=== PATIENT | female | born 1950 ===

== ENCOUNTER 2018-10-04 14:46 | Inpatient (IN) ==
--- NOTE | 2018-10-04 15:01 | Emergency Department Note ---
Disposition Clinical Impression: Chest pain Qualifiers: Chest pain type: other chest pain Qualified Code(s): R07.89 - Other chest pain Disposition: Admitted As Inpatient Condition: Fair Time of Disposition: 00:09 Chest Pain HPI - General Chief Complaint: ED Chest Pain Stated Complaint: Chest Pain Time Seen by Provider: 10/04/18 15:00 Source: patient, family Mode of arrival: ambulatory Limitations: no limitations Vital Signs Reviewed: Yes Nursing Notes Reviewed: Yes - History of Present Illness HPI Narrative: 68-year-old female without significant past medical history presenting to the ED for one week of intermittent mid epigastric pain radiating into her left neck, shoulder, and jaw. Patient states that her first episode was approximately one week ago when she was walking outside in the heat and suddenly developed 10 out of 10 severe epigastric pain. Patient states symptoms spontaneous really resolved and have occurred in a trending pattern nearly immediately after eating for the past week. Patient states the pain is especially worse after eating fatty foods. Patient states that she has a family history of cholecystitis and states that her mother and grandmother both had to have gallbladders removed. Patient is currently on atorvastatin for cholesterol but denies any other medications or known drug allergies. In addition to symptoms mentioned above patient admits to diaphoresis and shortness of breath with these episodes, patient also admits to being overly fatigued within the past week. Pt complaint: chest pain Onset (ago): week(s) Duration: intermittent Onset: during exertion, after eating Pain Location: epigastric Severity: severe, now resolved Severity scale (1-10): 10 Pain Radiation: LUE, jaw/teeth Improves with: rest Worsens with: eating Associated symptoms: Reports: nausea, diaphoresis, dyspnea - Related Data On Oral Contraceptives: No Home Medications Medication Instructions Recorded Confirmed Atorvastatin 03/14/17 Previous Rx's Medication Instructions Recorded Amoxicillin 875 mg PO BID #20 tablet 03/14/17 Benzonatate [Tessalon] 200 mg PO TID PRN #20 capsule 03/14/17 Fluticasone Propionate Nasal 1 spray NS DAILY #1 bottle 03/14/17 [Flonase] Allergies Allergy/AdvReac Type Severity Reaction Status Date / Time No Known Allergies Allergy Verified 03/14/17 12:43 Review of Systems: *See History of Present Illness for more detail Constitutional: Denies: fever, chills Cardiovascular: Admits: chest pain Respiratory: Denies: dyspnea, denies: cough, hemoptysis Gastrointestinal: Admits to nausea Denies: abdominal pain, vomiting, diarrhea, constipation, hematemesis, melena, hematochezia Genitourinary: Denies: hematuria Musculoskeletal: Denies: back pain, neck pain Neurological: Denies: headache, weakness, lightheadedness/dizziness, numbness, paresthesias, difficulty with ambulation. Endocrine: Admits: fatigue All systems ED: reviewed and negative except as stated. Review of Systems: As Per HPI Chest Pain PMH - Past Medical History Medical history: Reports: non-contributory Psychiatric history: Reports: no psych history - Social History Smoking Status: Never smoker Alcohol use: Reports: none Drug use: Reports: none Physical Exam Constitutional: No acute distress, [id number], engaged to conversation, speech is fluid, answers questions appropriately Neuro: GCS 15, no overt focal neurological deficits Head: Atraumatic, normocephalic Eyes: Pupils equal, round and reactive to light, no scleral icterus, no conjunctival injection Neck: Trachea midline without deviation. Anterior neck is supple without swelling. *Chest: Symmetric chest wall rise *Heart: Cardiac rhythm and rate are regular with S1 and S2 , no S3 or S4 appreciated, no murmurs, gallops, rubs, or clicks. *Lungs: Lungs are clear to auscultation bilaterally, without accessory muscle use or prolonged expiratory phase. No wheezes, rhonchi or stridor appreciated. Abdomen: Abdomen is flat, soft to palpation, normal bowel sounds. No abdominal bruit auscultated. Non-distended, non-rigid, no organomegaly, no ascites appreciated. No pulsatile mass, no tenderness or guarding to palpation in all four quadrants, no rebound Extremities: Normal capillary refill without evidence of pedal edema, joint swelling or erythema. Pulses/motor intact in all 4 extremities. Psychiatric exam: Patient displays a normal affect and mood for the environment. No overt signs of hallucination. Integumentary: warm, dry, intact, normal color. No rash, cyanosis, diaphoresis, erythema, or pallor - General Limitations: no limitations General appearance: alert, in no apparent distress Course Course Narrative: Differential diagnosis includes but is not limited to: Myocardial ischemia Pneumonia Cholecystitis, cholangitis Hepatic pathology Pancreatic pathology Ulceration Evaluations: CBC, BMP, hepatic panel, lipase, urine ED ultrasound upper right quadrant, EKG/old EKG, chest x-ray, troponin, coags Treatment: Patient denies symptoms at this time denies the need for pain medicine or antinausea medicine. Patient has been a bedside told to inform me if this changes. Vital Signs Temperature 97.5 F L 10/04/18 14:57 Pulse Rate 86 10/04/18 14:57 Respiratory Rate 18 10/04/18 14:57 Blood Pressure 189/95 10/04/18 14:57 O2 Sat by Pulse Oximetry 98 10/04/18 14:57 Temperature 97.8 F 10/04/18 23:32 Pulse Rate 62 10/04/18 23:32 Respiratory Rate 16 10/04/18 23:32 Blood Pressure 138/73 10/04/18 23:32 O2 Sat by Pulse Oximetry 98 10/04/18 23:32 Oxygen Delivery Oxygen Delivery Room Air Chest Pain - MDM Narrative Medical decision making narrative: Patient labs, EKG, and urine results negative for acute pathology. Patient heart score is 5 Patient be admitted to hospitalist medicine service for their evaluation and management of chest pain for rule out of ACS. Patient and family family at bedside verbalize understanding and agreement this plan. - Lab Data Lab results reviewed: Yes I reviewed the patient's lab results. Result diagrams: 10/04/18 18:30 10/04/18 15:21 Lab Results 10/04/18 10/04/18 10/04/18 Range/Units 15:21 15:21 15:21 WBC 8.1 (4.3-11.1) K/mcL RBC 4.46 (3.82-4.97) M/mcL Hgb 13.0 (11.5-15.4) g/dL Hct 39.7 (35.3-44.9) % MCV 89.0 (83.0-100.0) fL MCH 29.1 (28.0-33.3) pg MCHC 32.7 (31.6-35.5) g/dL RDW 12.6 (11.5-14.5) % Plt Count 264 (140-400) K/mcL MPV 9.7 (9.4-12.4) fL Immature Gran % 0.2 (0-4) % Seg Neutrophils % 60.0 % Lymphocytes % 32.2 % Monocytes % 5.6 % Eosinophils % 1.6 % Basophils % 0.4 % Neutrophils # 4.9 (1.6-8.9) K/mcL Lymphocytes # 2.6 (0.6-4.6) K/mcL Monocytes # 0.5 (0.0-1.3) K/mcL Eosinophils # 0.1 (0.0-0.6) K/mcL Basophils # 0.0 (0.0-0.2) K/mcL PT 11.9 (9.4-12.1) Seconds INR 1.1 APTT 30.1 (26.0-36.0) Seconds Sodium 142 (136-145) mEq/L Potassium 3.5 (3.5-5.1) mEq/L Chloride 106 (98-107) mEq/L Carbon Dioxide 27 (23-29) mEq/L BUN 18 (8-23) mg/dL Creatinine 1.18 (0.60-1.20) mg/dL Est GFR ( Amer) 55 L (> 60) Est GFR (Non-Af Amer) 46 L (> 60) BUN/Creatinine Ratio 15 (6-26) Glucose 165 H (70-105) mg/dL Calculated Osmolality 300 (280-300) Calcium 9.8 (8.6-10.3) mg/dL Total Bilirubin (0.3-1.0) mg/dL Direct Bilirubin (0.0-0.2) mg/dL Indirect Bilirubin (0.0-1.2) mg/dL AST (13-39) Units/L ALT (7-52) Units/L Alkaline Phosphatase (34-104) Units/L Troponin I < 0.03 (< 0.04) ng/mL Serum Total Protein (6.4-8.9) g/dL Albumin (3.5-5.7) g/dL Globulin (2.4-3.5) g/dL Albumin/Globulin Ratio (1.1-2.2) 10/04/18 Range/Units 15:21 WBC (4.3-11.1) K/mcL RBC (3.82-4.97) M/mcL Hgb (11.5-15.4) g/dL Hct (35.3-44.9) % MCV (83.0-100.0) fL MCH (28.0-33.3) pg MCHC (31.6-35.5) g/dL RDW (11.5-14.5) % Plt Count (140-400) K/mcL MPV (9.4-12.4) fL Immature Gran % (0-4) % Seg Neutrophils % % Lymphocytes % % Monocytes % % Eosinophils % % Basophils % % Neutrophils # (1.6-8.9) K/mcL Lymphocytes # (0.6-4.6) K/mcL Monocytes # (0.0-1.3) K/mcL Eosinophils # (0.0-0.6) K/mcL Basophils # (0.0-0.2) K/mcL PT (9.4-12.1) Seconds INR APTT (26.0-36.0) Seconds Sodium (136-145) mEq/L Potassium (3.5-5.1) mEq/L Chloride (98-107) mEq/L Carbon Dioxide (23-29) mEq/L BUN (8-23) mg/dL Creatinine (0.60-1.20) mg/dL Est GFR ( Amer) (> 60) Est GFR (Non-Af Amer) (> 60) BUN/Creatinine Ratio (6-26) Glucose (70-105) mg/dL Calculated Osmolality (280-300) Calcium (8.6-10.3) mg/dL Total Bilirubin 0.7 (0.3-1.0) mg/dL Direct Bilirubin 0.1 (0.0-0.2) mg/dL Indirect Bilirubin 0.6 (0.0-1.2) mg/dL AST 16 (13-39) Units/L ALT 12 (7-52) Units/L Alkaline Phosphatase 75 (34-104) Units/L Troponin I (< 0.04) ng/mL Serum Total Protein 7.2 (6.4-8.9) g/dL Albumin 4.5 (3.5-5.7) g/dL Globulin 2.7 (2.4-3.5) g/dL Albumin/Globulin Ratio 1.7 (1.1-2.2) - Radiology Data Radiology results reviewed: Yes I reviewed the patient's radiology results. Chest X-Ray 10/04/18 14:59 IMPRESSION: No acute cardiopulmonary disease. D/ / Ricardo Brown / Ricardo Brown Interpreting Provider: Ricardo Brown - EKG Data EKG attestation: Yes I reviewed and interpreted this EKG. EKG results narrative: Patient's EKG shows a sinus rhythm with borderline left axis deviation a ventricular rate of 76 bpm, TX interval of 155 ms, QS duration of 90 ms, QT/QTc interval 403/434 ms respectively. There are minor ST segment depressions noted in the anterior lateral leads, there are no significant ST segment depressions noted, there are no pathologic Q waves, there are abnormal T-wave inversions noted in lead 3 with flattening of T waves in aVF, which may represent a normal variant but in the setting of the patient's story and anterior lateral changes concerning for ischemia. At this time there is no prior EKG available for comparison. Heart Score - Score History: Moderately Suspicious EKG: Non Specific repolarisation Disturbance Age: Greater than 65 Risk Factors: 1-2 risk factors Troponin: Less than normal limit HEART Score Total: 5
--- NOTE | 2018-10-04 15:45 | Emergency Department Note ---
Disposition Clinical Impression: Chest pain Qualifiers: Chest pain type: unspecified Qualified Code(s): R07.9 - Chest pain, unspecified Disposition: Admitted As Inpatient Condition: Fair Forms: ED Satisfaction Letter Time of Disposition: 17:12 General Adult HPI - General Chief complaint: ED Chest Pain Stated complaint: Chest Pain Time Seen by Provider: 10/04/18 15:00 Source: patient, family Mode of arrival: ambulatory Limitations: no limitations - History of Present Illness Pain Scale: 10 - Related Data Home Medications Medication Instructions Recorded Confirmed Atorvastatin 03/14/17 Previous Rx's Medication Instructions Recorded Amoxicillin 875 mg PO BID #20 tablet 03/14/17 Benzonatate [Tessalon] 200 mg PO TID PRN #20 capsule 03/14/17 Fluticasone Propionate Nasal 1 spray NS DAILY #1 bottle 03/14/17 [Flonase] Allergies Allergy/AdvReac Type Severity Reaction Status Date / Time No Known Allergies Allergy Verified 03/14/17 12:43 Past Medical History - Past Medical History Medical history: Reports: non-contributory Psychiatric history: Reports: no psych history - Social History Smoking Status: Never smoker Smokeless Tobacco Status: No Alcohol use: Reports: none Drug use: Reports: none Physical Exam - General Limitations: no limitations General appearance: alert, in no apparent distress Course Vital Signs Temperature 97.5 F L 10/04/18 14:57 Pulse Rate 86 10/04/18 14:57 Respiratory Rate 18 10/04/18 14:57 Blood Pressure 189/95 10/04/18 14:57 O2 Sat by Pulse Oximetry 98 10/04/18 14:57 Temperature 97.5 F L 10/04/18 14:57 Pulse Rate 86 10/04/18 14:57 Respiratory Rate 18 10/04/18 14:57 Blood Pressure 189/95 10/04/18 14:57 O2 Sat by Pulse Oximetry 98 10/04/18 14:57 Oxygen Delivery Oxygen Delivery Room Air Medical Decision Making - Lab Data Result diagrams: 10/04/18 15:21 10/04/18 15:21 Lab Results 10/04/18 10/04/18 10/04/18 Range/Units 15:21 15:21 15:21 WBC 8.1 (4.3-11.1) K/mcL RBC 4.46 (3.82-4.97) M/mcL Hgb 13.0 (11.5-15.4) g/dL Hct 39.7 (35.3-44.9) % MCV 89.0 (83.0-100.0) fL MCH 29.1 (28.0-33.3) pg MCHC 32.7 (31.6-35.5) g/dL RDW 12.6 (11.5-14.5) % Plt Count 264 (140-400) K/mcL MPV 9.7 (9.4-12.4) fL Immature Gran % 0.2 (0-4) % Seg Neutrophils % 60.0 % Lymphocytes % 32.2 % Monocytes % 5.6 % Eosinophils % 1.6 % Basophils % 0.4 % Neutrophils # 4.9 (1.6-8.9) K/mcL Lymphocytes # 2.6 (0.6-4.6) K/mcL Monocytes # 0.5 (0.0-1.3) K/mcL Eosinophils # 0.1 (0.0-0.6) K/mcL Basophils # 0.0 (0.0-0.2) K/mcL PT 11.9 (9.4-12.1) Seconds INR 1.1 APTT 30.1 (26.0-36.0) Seconds Sodium 142 (136-145) mEq/L Potassium 3.5 (3.5-5.1) mEq/L Chloride 106 (98-107) mEq/L Carbon Dioxide 27 (23-29) mEq/L BUN 18 (8-23) mg/dL Creatinine 1.18 (0.60-1.20) mg/dL Est GFR ( Amer) 55 L (> 60) Est GFR (Non-Af Amer) 46 L (> 60) BUN/Creatinine Ratio 15 (6-26) Glucose 165 H (70-105) mg/dL Calculated Osmolality 300 (280-300) Calcium 9.8 (8.6-10.3) mg/dL Total Bilirubin (0.3-1.0) mg/dL Direct Bilirubin (0.0-0.2) mg/dL Indirect Bilirubin (0.0-1.2) mg/dL AST (13-39) Units/L ALT (7-52) Units/L Alkaline Phosphatase (34-104) Units/L Troponin I < 0.03 (< 0.04) ng/mL Serum Total Protein (6.4-8.9) g/dL Albumin (3.5-5.7) g/dL Globulin (2.4-3.5) g/dL Albumin/Globulin Ratio (1.1-2.2) 10/04/18 Range/Units 15:21 WBC (4.3-11.1) K/mcL RBC (3.82-4.97) M/mcL Hgb (11.5-15.4) g/dL Hct (35.3-44.9) % MCV (83.0-100.0) fL MCH (28.0-33.3) pg MCHC (31.6-35.5) g/dL RDW (11.5-14.5) % Plt Count (140-400) K/mcL MPV (9.4-12.4) fL Immature Gran % (0-4) % Seg Neutrophils % % Lymphocytes % % Monocytes % % Eosinophils % % Basophils % % Neutrophils # (1.6-8.9) K/mcL Lymphocytes # (0.6-4.6) K/mcL Monocytes # (0.0-1.3) K/mcL Eosinophils # (0.0-0.6) K/mcL Basophils # (0.0-0.2) K/mcL PT (9.4-12.1) Seconds INR APTT (26.0-36.0) Seconds Sodium (136-145) mEq/L Potassium (3.5-5.1) mEq/L Chloride (98-107) mEq/L Carbon Dioxide (23-29) mEq/L BUN (8-23) mg/dL Creatinine (0.60-1.20) mg/dL Est GFR ( Amer) (> 60) Est GFR (Non-Af Amer) (> 60) BUN/Creatinine Ratio (6-26) Glucose (70-105) mg/dL Calculated Osmolality (280-300) Calcium (8.6-10.3) mg/dL Total Bilirubin 0.7 (0.3-1.0) mg/dL Direct Bilirubin 0.1 (0.0-0.2) mg/dL Indirect Bilirubin 0.6 (0.0-1.2) mg/dL AST 16 (13-39) Units/L ALT 12 (7-52) Units/L Alkaline Phosphatase 75 (34-104) Units/L Troponin I (< 0.04) ng/mL Serum Total Protein 7.2 (6.4-8.9) g/dL Albumin 4.5 (3.5-5.7) g/dL Globulin 2.7 (2.4-3.5) g/dL Albumin/Globulin Ratio 1.7 (1.1-2.2) Attestation Statement - Attestation Attestation: I examined this patient and my medical decision-making was reviewed with the Resident Physician. I agree with the documented findings, disposition and treatment plan as described except to the extent set forth below. Patient presents to the ED with acute chest pain. Substernal pressure remained in the left upper chest and arm and neck. Started this morning after she ate breakfast. No cardiac history. She does have a family history and a history of high cholesterol. Patient is currently pain-free. On exam she is awake and alert in no acute distress. Pleasant and conversant. Heart regular rate and rhythm lungs are clear. No pedal edema. Plan. Cardiac workup. Troponin is negative. Patient is admitted secondary to history, risk factors, an EKG changes. EKG with the resident. Anterolateral ST depressions in the inferior T wave inversions and flattening concerning for ischemia.:
[2018-10-04 15:47] LABS: Basophils % 0.4 %; Eosinophils # 0.1 K/mcL (0.0-0.6); Eosinophils % 1.6 %; Hematocrit 39.7 % (35.3-44.9); Immature Granulocytes % 0.2 % (0-4); Lymphocytes # 2.6 K/mcL (0.6-4.6); Lymphocytes % 32.2 %; Mean Corpuscular HGB Conc 32.7 g/dL (31.6-35.5); Mean Corpuscular Hemoglobin 29.1 pg (28.0-33.3); Mean Platelet Volume 9.7 fL (9.4-12.4); Monocytes # 0.5 K/mcL (0.0-1.3); Monocytes % 5.6 %; Neutrophils # 4.9 K/mcL (1.6-8.9); Platelet Count 264 K/mcL (140-400); Red Blood Count 4.46 M/mcL (3.82-4.97); Red Cell Distribution Width 12.6 % (11.5-14.5); White Blood Count 8.1 K/mcL (4.3-11.1)
[2018-10-04 15:55] LABS: INR 1.1; Prothrombin Time 11.9 Seconds (9.4-12.1)
[2018-10-04 15:57] LABS: Activated Partial Thrombo Time 30.1 Seconds (26.0-36.0)
[2018-10-04 16:03] LABS: Albumin 4.5 g/dL (3.5-5.7); Albumin/Globulin Ratio 1.7 (1.1-2.2); Bilirubin,Direct 0.1 mg/dL (0.0-0.2); Bilirubin,Indirect 0.6 mg/dL (0.0-1.2); Bilirubin,Total 0.7 mg/dL (0.3-1.0); Globulin 2.7 g/dL (2.4-3.5); Total Protein 7.2 g/dL (6.4-8.9)
[2018-10-04 16:05] LABS: BUN/Creatinine Ratio 15 (6-26); Blood Urea Nitrogen 18 mg/dL (8-23); Calcium 9.8 mg/dL (8.6-10.3); Carbon Dioxide 27 mEq/L (23-29); Chloride 106 mEq/L (98-107); Glucose 165 mg/dL (70-105); Osmolality,Calculated 300 (280-300); Potassium 3.5 mEq/L (3.5-5.1); Sodium 142 mEq/L (136-145); Troponin I < 0.03 ng/mL (< 0.04); eGFR For African Americans 55 (> 60); eGFR For Non-African Americans 46 (> 60)
[2018-10-04] MEDS ORDERED: Acetaminophen 325 MG TABLET PO PRN (17:55)
[2018-10-04] MEDS ORDERED: Naloxone 0.4 MG/ML INJ IVP PRN (17:55)
--- NOTE | 2018-10-04 18:09 | Internal Med History&Physical ---
Date of Encounter: 10/04/18 Time of Encounter: 17:30 Internal Medicine - H&P: HPI Chief complaint: Chest pain Admitted From: Emergency Dept Plans for Post Hospital Care: Home History of present illness: Ms. Reyes is a 68 year old female with hx of ovarian cancer and HLD presented to ED with complaints of L side chest pain. She was placed in observation. Ms Reyes presented to ED with complaints of L side chest pain radiating to her neck. She stated these symptoms have been going on for a few weeks but seem to be getting more frequent. At times she has had associated diaphoresis and dyspnea. She has been much more fatigued over the last few weeks and daughter ([facility] nurse practitioner) noted that when patient went up stairs recently she was very dyspneic and diaphoretic and resolved with rest. She had chest discomfort at that time. Today she had 3 separate episodes and that prompted coming to ED. Sometimes the discomfort is associated with food (ED bedside US did not show stones). She has no hx of HTN but her BP is elevated at this time. No prior hx of heart disease (but did not see doctor for many years). Quit smoking in about 1979. No alcohol or illicit drugs. At this time she is comfortable and has no symptoms. Family is at bedside. ED note states that there are changes that could be ischemic but [facility] and I can not find it in the ED to review. Past Med Surg Social Fam HX - Past Medical History Medical history: non-contributory Psychiatric history: no psych history - Past Surgical History Additional surgical history: fistula repair - colonoscopy - Social History Smoking Status: Never smoker Smokeless Tobacco Status: No Alcohol use: none Drug use: none - Family History Brother Hx Family Cardiac Disorders: Yes (CAD) - Additional Family History Additional family history: Multiple family members with CAD/TX, cancer, CVA. No DM or HTN noted. Internal Medicine - H&P: Meds Amoxicillin 875 mg PO BID #20 tablet 03/14/17 [Rx] Atorvastatin 03/14/17 [History] Benzonatate [Tessalon] 200 mg PO TID PRN #20 capsule 03/14/17 [Rx] Fluticasone Propionate Nasal [Flonase] 1 spray NS DAILY #1 bottle 03/14/17 [Rx] Allergy/AdvReac Type Severity Reaction Status Date / Time No Known Allergies Allergy Verified 03/14/17 12:43 All Systems PM: A 10-system review of systems was performed and is negative for pertinent findings except as documented above in the HPI. - Constitutional Constitutional: fatigue - EENT Eyes: no loss of vision, no pain Ears: no decreased hearing Nose, mouth and throat: no dry mouth, no mouth pain - Cardiovascular Cardiovascular ROS IM: chest pain, diaphoresis, dyspnea, dyspnea on exertion, no edema, no orthopnea, no palpitations, no paroxysmal nocturnal dyspnea - Respiratory Respiratory: dyspnea, dyspnea on exertion, no cough, no wheezing, no chest congestion - Gastrointestinal Gastrointestinal: abdominal pain, no diarrhea, no nausea, no vomiting - Genitourinary Genitourinary: no nocturia, no urinary frequency - Musculoskeletal Musculoskeletal ROS IM: no arthralgias, no joint swelling - Integumentary Integumentary IM: no erythema - Neurological Neurological ROS: no confusion, no weakness - Endocrine Endocrine IM: no excessive sweating - Hematologic/Lymphatic Hematologic/Lymphatic: no easy bleeding - Allergic/Immunologic Allergic/Immunologic: no itchy eyes - Constitutional Vitals: Temp Pulse Resp BP Pulse Ox 97.5 F L 86 18 189/95 98 10/04/18 14:57 10/04/18 14:57 10/04/18 14:57 10/04/18 14:57 10/04/18 14:57 General appearance: Present: A&O X 3, pleasant, answers questions appropriately Exam: See below - Head Head exam: Present: atraumatic, normocephalic - Eye Eye exam: Present: EOMI, conjuntiva pink - ENT ENT exam: Present: mucous membranes moist - Neck Neck exam general surgery: Present: normal inspection, supple. Absent: lymphadenopathy - Respiratory Respiratory exam: Present: CTAB. Absent: rales, rhonchi, wheezes - Cardiovascular Cardiovascular exam: Present: RRR. Absent: +S3, +S4, systolic murmur, tachycardia - GI/Abdominal GI/Abdominal exam: Present: normal bowel sounds, soft, tenderness (Mild in midepigastric/RUQ area). Absent: mass - Extremities Exam Extremities exam: Present: warm. Absent: pedal edema, tenderness - Neurological Exam Neurological exam: Present: alert, oriented X3, no focal deficits - Skin Skin exam: Present: dry, warm. Absent: rash Internal Med - H&P Results - Labs CBC & Chem 7: 10/04/18 15:21 10/04/18 15:21 Labs: Short CBC 10/04/18 Range/Units 15:21 WBC 8.1 (4.3-11.1) K/mcL Hgb 13.0 (11.5-15.4) g/dL Hct 39.7 (35.3-44.9) % Plt Count 264 (140-400) K/mcL Neutrophils # 4.9 (1.6-8.9) K/mcL BMP 10/04/18 15:21 Sodium 142 Potassium 3.5 Chloride 106 Carbon Dioxide 27 BUN 18 Creatinine 1.18 Glucose 165 H Calcium 9.8 Cardiac Enzymes 10/04/18 Range/Units 15:21 Troponin I < 0.03 (< 0.04) ng/mL Liver Function 10/04/18 Range/Units 15:21 Total Bilirubin 0.7 (0.3-1.0) mg/dL Direct Bilirubin 0.1 (0.0-0.2) mg/dL AST 16 (13-39) Units/L ALT 12 (7-52) Units/L Alkaline Phosphatase 75 (34-104) Units/L Albumin 4.5 (3.5-5.7) g/dL - Impressions ITS Impressions Chest X-Ray 10/04/18 14:59 IMPRESSION: No acute cardiopulmonary disease. D/ / Ricardo Brown / Ricardo Brown Interpreting Provider: Ricardo Brown - Assessment and Plan (1) Chest pain Current Visit: Yes Status: Suspected Assessment and plan: Pt presents to ED today with complaints of L side chest pain radiating to L neck. Episodes have been associated with diaphoresis, dyspnea and fatigue. Appear to be increasing in number and intensity. Suspect unstable angina - Cycle troponin. Check echo Stress test in AM As the episodes seem to be increasing (and there are reported EKG changes per ED), will start heparin drip overnight. Qualifiers: Chest pain type: chest pain due to myocardial ischemia Qualified Code(s): I20.0 - Unstable angina (2) HTN (hypertension) Current Visit: Yes Status: Suspected Assessment and plan: Pt denies prior hx of HTN but BP has been elevated in ED. Will start low dose Metoprolol tonight. Qualifiers: Hypertension type: essential hypertension Qualified Code(s): I10 - Essential (primary) hypertension (3) HLD (hyperlipidemia) Current Visit: Yes Status: Chronic Assessment and plan: Pt reports hx of HLD. Continue Atorvastatin (watching LFTs) Qualifiers: Hyperlipidemia type: mixed hyperlipidemia Qualified Code(s): E78.2 - Mixed hyperlipidemia (4) Abdominal pain Current Visit: Yes Status: Acute Assessment and plan: Pt reports episodes of epigastric discomfort as well. Mild increase in LFTs. ED US reportedly negative for stones (according to family). May need further work up after cardiac work up. Qualifiers: Abdominal location: epigastric Qualified Code(s): R10.13 - Epigastric pain (5) Hx of ovarian cancer Current Visit: Yes Status: Resolved Assessment and plan: Surgical cure - Time Spent With Patient Total time spent is greater than 50% in coordination of care (as documented) at patient's floor/unit and/or counseling patient:
[2018-10-04] MEDS ORDERED: *HR* Heparin 5,000 UNIT/ML VIAL IVP ONE (18:20)
[2018-10-04] MEDS ORDERED: *HR* Heparin 5,000 UNIT/ML VIAL IVP PRN (18:20)
[2018-10-04 18:46] LABS: Hematocrit 40.6 % (35.3-44.9); Hemoglobin 13.3 g/dL (11.5-15.4); Mean Corpuscular HGB Conc 32.8 g/dL (31.6-35.5); Mean Corpuscular Hemoglobin 29.1 pg (28.0-33.3); Mean Corpuscular Volume 88.8 fL (83.0-100.0); Mean Platelet Volume 9.3 fL (9.4-12.4); Platelet Count 278 K/mcL (140-400); Red Blood Count 4.57 M/mcL (3.82-4.97); Red Cell Distribution Width 12.6 % (11.5-14.5)
[2018-10-04] MEDS: Heparin 25,000 UNIT/250 ML D5W 25,000 UNIT/250 ML IV.SOLN IVC SCH (20:04)
[2018-10-04] MEDS ORDERED: Perflutren Lipid Microsphere 1.3 ML in 0.9 % Sodium Chloride 8.7 ML IVP ONE (20:58)
[2018-10-05 00:52] LABS: Hematocrit 37.3 % (35.3-44.9); Hemoglobin 12.4 g/dL (11.5-15.4); Mean Corpuscular HGB Conc 33.2 g/dL (31.6-35.5); Mean Corpuscular Hemoglobin 29.5 pg (28.0-33.3); Mean Corpuscular Volume 88.8 fL (83.0-100.0); Mean Platelet Volume 9.6 fL (9.4-12.4); Platelet Count 244 K/mcL (140-400); Red Cell Distribution Width 12.6 % (11.5-14.5); White Blood Count 10.7 K/mcL (4.3-11.1)
[2018-10-05 01:07] LABS: INR 1.2; Prothrombin Time 13.2 Seconds (9.4-12.1)
[2018-10-05 01:24] LABS: Alanine Aminotransferase 11 Units/L (7-52); Albumin 4.1 g/dL (3.5-5.7); Albumin/Globulin Ratio 1.8 (1.1-2.2); Alkaline Phosphatase 64 Units/L (34-104); Aspartate Amino Transferase 14 Units/L (13-39); BUN/Creatinine Ratio 16 (6-26); Bilirubin,Total 0.7 mg/dL (0.3-1.0); Blood Urea Nitrogen 14 mg/dL (8-23); Calcium 9.2 mg/dL (8.6-10.3); Carbon Dioxide 25 mEq/L (23-29); Chloride 106 mEq/L (98-107); Chol/HDL Ratio 2.7 (0-4.9); Cholesterol 142 mg/dL (< 200); Globulin 2.3 g/dL (2.4-3.5); Glucose 128 mg/dL (70-105); HDL Cholesterol 53 mg/dL (40-59); LDL Cholesterol,Calculated 76 mg/dL (0-99); Magnesium 2.2 mg/dL (1.6-2.6); Osmolality,Calculated 292 (280-300); Potassium 3.3 mEq/L (3.5-5.1); Sodium 140 mEq/L (136-145); Total Protein 6.4 g/dL (6.4-8.9); Triglycerides 66 mg/dL (< 150); Troponin I 0.04 ng/mL (< 0.04); eGFR For African Americans > 60 (> 60); eGFR For Non-African Americans > 60 (> 60)
[2018-10-05] MEDS ORDERED: Regadenoson 0.4 MG/5 ML SYRINGE IVP ONE (06:08)
[2018-10-05 10:09] LABS: Estimated Average Glucose 126 mg/dl
--- NOTE | 2018-10-05 11:08 | Internal Med Progress Note ---
Hospitalist Progress Note - Encounter Date of Encounter: 10/05/18 Time of Encounter: 10:45 - Subjective Interval History: Ms Reyes is currently in observation for unstable angina. She remains moderate to high risk due to potential for worsening cardiac status. Ms Reyes is feeling OK at this time. No further chest pain. Troponin with slight increase. Stress test cancelled. To have cardiac evaluation and most likely LHC. - Exam Vitals: Temp Pulse Resp BP Pulse Ox 98.2 F 74 16 142/78 96 10/05/18 07:01 10/05/18 07:01 10/05/18 07:01 10/05/18 07:01 10/05/18 07:01 Exam: General: Alert and oriented. Comfortable at this time. Sititng up in chair. Skin: Normal color, no rash, H: Normocephalic. EENT: EOMI, Mucus membranes moist. Cardiovascular: Normal S1 & S2, Pulse regular. Lungs: Normal breath sounds, no wheezes or crackles. Abdomen: Soft, non-tender, Normal bowel sounds. Extremities: No deformity, no edema Neurological: Normal cognition and motor skills. Pulses: radial pulses normal +2. Rest of the physical exam is non contributory - Assessment and Plan (1) Chest pain Current Visit: Yes Status: Suspected Assessment and Plan: Pt presents to ED with complaints of L side chest pain radiating to L neck. Episodes have been associated with diaphoresis, dyspnea and fatigue. Appear to be increasing in number and intensity. Suspect unstable angina - Slight increase in troponin. Stress test held - to have LHC. (2) HTN (hypertension) Current Visit: Yes Status: Suspected Assessment and Plan: Pt denies prior hx of HTN but BP was elevated in ED. Metoprolol started - some improvement noted. (3) HLD (hyperlipidemia) Current Visit: Yes Status: Chronic Assessment and Plan: Pt reports hx of HLD. Continue Atorvastatin (4) Abdominal pain Current Visit: Yes Status: Resolved (5) Hx of ovarian cancer Current Visit: Yes Status: Resolved (6) Hypokalemia Current Visit: Yes Status: Acute Assessment and Plan: New today. Replace. - Time Spent with Patient Total time spent is greater than 50% in coordination of care (as documented) at patient's floor/unit and/or counseling patient: Internal Medicine: Result - Labs CBC & Chem 7: 10/05/18 00:15 06/08/19 00:15 Labs: Short CBC 10/04/18 10/04/18 10/05/18 Range/Units 15:21 18:30 00:15 WBC 8.1 9.0 10.7 (4.3-11.1) K/mcL Hgb 13.0 13.3 12.4 (11.5-15.4) g/dL Hct 39.7 40.6 37.3 (35.3-44.9) % Plt Count 264 278 244 (140-400) K/mcL Neutrophils # 4.9 (1.6-8.9) K/mcL BMP 10/04/18 10/05/18 15:21 00:15 Sodium 142 140 Potassium 3.5 3.3 L Chloride 106 106 Carbon Dioxide 27 25 BUN 18 14 Creatinine 1.18 0.89 Glucose 165 H 128 H Calcium 9.8 9.2 Cardiac Enzymes 10/04/18 10/04/18 10/05/18 Range/Units 15:21 18:30 00:15 Troponin I < 0.03 0.04 H* 0.04 H* (< 0.04) ng/mL 10/05/18 Range/Units 07:15 Troponin I 0.03 (< 0.04) ng/mL Liver Function 10/04/18 10/05/18 Range/Units 15:21 00:15 Total Bilirubin 0.7 0.7 (0.3-1.0) mg/dL Direct Bilirubin 0.1 (0.0-0.2) mg/dL AST 16 14 (13-39) Units/L ALT 12 11 (7-52) Units/L Alkaline Phosphatase 75 64 (34-104) Units/L Albumin 4.5 4.1 (3.5-5.7) g/dL - ABG Interpretation ABG results: PT/INR, D-dimer PT 13.2 Seconds (9.4-12.1) H 10/05/18 00:15 - Impressions Impressions Chest X-Ray 10/04/18 14:59 IMPRESSION: No acute cardiopulmonary disease. D/ / Ricardo Brown / Ricardo Brown Interpreting Provider: Ricardo Brown Echocardiogram 10/04/18 17:56 Impressions: LVEF 60-65%. Normal LV chamber size and wall thickness. Mild left ventricular diastolic dysfunction. Normal right ventricular structure and function. Mild aortic regurgitation. No evidence of pulmonary hypertension. Left Ventricular Wall Motion: Rest Echo Findings All wall segments showed normal motion. Findings: Study Quality * Technically adequate exam. ECG Findings * Normal sinus rhythm. Left Ventricle * LVEF 60-65%. * Normal LV chamber size and wall thickness. * Mild left ventricular diastolic dysfunction. Right Ventricle * Normal right ventricular structure and function. Left Atrium * Normal left atrial size. Right Atrium * Normal right atrial size. Interatrial Septum * No evidence of PFO by color Doppler. Aortic Valve * Trileaflet aortic valve. * Mild aortic regurgitation. * No aortic stenosis. * Mildly sclerotic aortic valve leaflets. Mitral Valve * Normal mitral valve structure. * No mitral regurgitation. * No mitral stenosis. Tricuspid Valve * Normal tricuspid valve structure. * No tricuspid stenosis. * No evidence of pulmonary hypertension. * Mild tricuspid regurgitation. Pulmonic Valve * Trace pulmonic regurgitation. Aorta * Normally sized aortic root. Pericardium * The pericardium appears normal. IVC * Normal IVC dimensions and inspiratory collapse. Pulmonary Artery * Normal visualized portions of the main pulmonary artery. Consult Discharge Plan - Plan Referrals: Zandra Klein, YARN PACKER [Primary Care Provider] - (1) Chest pain Qualifiers: Chest pain type: chest pain due to myocardial ischemia Qualified Code(s): I20.0 - Unstable angina (2) HTN (hypertension) Qualifiers: Hypertension type: essential hypertension Qualified Code(s): I10 - Essential (primary) hypertension (3) HLD (hyperlipidemia) Qualifiers: Hyperlipidemia type: mixed hyperlipidemia Qualified Code(s): E78.2 - Mixed hyperlipidemia (4) Abdominal pain Qualifiers: Abdominal location: epigastric Qualified Code(s): R10.13 - Epigastric pain
[2018-10-05] MEDS: Aspirin 81 MG TAB.CHEW PO SCH (12:31)
--- NOTE | 2018-10-05 14:32 | Cardiology Consult Note ---
Date of Encounter: 10/05/18 Time of Encounter: 09:00 Assessment and Plan (1) Unstable angina Current Visit: Yes Status: Acute Patient's clinical presentation consistent with unstable angina/NSTEMI minimal troponin 0.05. Continue IV heparin, aspirin 81 mg daily, beta josh, high intensity statin. If patient develops chest pain, please obtain EKG and cardiac enzyme. Sublingual nitroglycerin when necessary. Echocardiogram shows preserved ejection fraction with no wall motion abnormalities. We will plan for cardiac catheterization on Sunday. However if chest pain recurs please call back end developer/applications engineer painting contractor. (2) HTN (hypertension) Current Visit: Yes Status: Suspected Continue beta josh. May add isosorbide mononitrate if blood pressure needs better control. Qualifiers: Hypertension type: essential hypertension Qualified Code(s): I10 - Essential (primary) hypertension (3) HLD (hyperlipidemia) Current Visit: Yes Status: Chronic Continue high intensity statin Qualifiers: Hyperlipidemia type: mixed hyperlipidemia Qualified Code(s): E78.2 - Mixed hyperlipidemia Discussion w patient/family: The assessment and plan as outlined above was discussed with the patient and/or family members who expressed understanding and agreement. All questions were answered. Thank you for involving us in the care of your patient. Please call with any questions. History of Present Illness Consult date: 10/05/18 Chief complaint: Chest pain History of present illness: Ms. Reyes is a 68 year old female Ms. Reyes is a pleasant 68 year old female with hx of ovarian cancer status post surgery with subsequent premature menopause, and hyperlipidemia, possibly hypertension although she was following with any physician for this, she was admitted for worsening chest pain on exertion over the past 3 weeks. She reports that she would not have to go she walks less than a mile and started feeling chest pain with associated diaphoresis and nausea. Chest pain resolved with rest. However patient did not seek medical attention. In the last couple of days she has been having chest pain on climbing a few steps of stairs, which resolves with rest. Her brother had [place] in his 50s. She is a former smoker who quit smoking about 40 years ago. The ER she was found to have blood pressure 180/95, and at that time she was chest pain-free. Past Med Surg Social Fam HX - Past Medical History Medical history: non-contributory Psychiatric history: no psych history - Past Surgical History Additional surgical history: fistula repair - colonoscopy - Social History Smoking Status: Never smoker Smokeless Tobacco Status: No Alcohol use: none Drug use: none - Family History Brother Hx Family Cardiac Disorders: Yes (CAD) Medications and Allergies Atorvastatin 40 mg HS 03/14/17 [History] Cholecalciferol (D-3) [Vitamin D] 2,000 unit PO DAILY 10/05/18 [History] Allergy/AdvReac Type Severity Reaction Status Date / Time No Known Allergies Allergy Verified 03/14/17 12:43 All Systems Review: The remainder of the systems were reviewed and are negative - Constitutional Constitutional: no anorexia, no fever(s) - EENT Nose, mouth and throat: no bleeding gums, no epistaxis - Cardiovascular Cardiovascular: chest pain with exertion, no chest pain at rest, no claudication, no irregular heart rhythm, no palpitations, no paroxysmal nocturnal dyspnea, no rapid heart rate - Respiratory Respiratory: no cough - Gastrointestinal Gastrointestinal: abdominal pain, no dysphagia, no melena - Musculoskeletal Musculoskeletal: no muscle weakness - Integumentary Integumentary: no unusual bruising - Neurological Neurological: no abnormal speech - Hematological/Lymphatic Hematologic/Lymphatic: no easy bleeding Physical Examination Vital Signs, Last 4 Hours Temp Pulse Resp BP Pulse Ox 10/05/18 11:46 97.8 F 75 16 136/79 98 General: Conversant HEENT: Atraumatic, Normocephaly Neck: No JVD Cardiac: Reg Rate and Rhythm, Normal S1 and S2, No Murmur Lungs: Normal Breath Sounds, No Wheeze, Rales, Rhonchi Neuro: Alert and responsive Abdomen: Soft Musculoskeletal: No Chest Wall Tenderness Extremities: No Edema, Normal Pulses Results 10/05/18 00:15 10/05/18 00:15 Lab Results 10/04/18 10/04/18 10/04/18 15:21 15:21 15:21 WBC 8.1 Hgb 13.0 Hct 39.7 Plt Count 264 INR 1.1 APTT 30.1 Sodium 142 Potassium 3.5 Chloride 106 Carbon Dioxide 27 BUN 18 Creatinine 1.18 Glucose 165 H Calcium 9.8 Magnesium Total Bilirubin AST ALT Alkaline Phosphatase Troponin I < 0.03 Lipase 10/04/18 10/04/18 10/04/18 15:21 18:30 18:30 WBC Hgb Hct Plt Count INR APTT Sodium Potassium Chloride Carbon Dioxide BUN Creatinine Glucose Calcium Magnesium Total Bilirubin 0.7 AST 16 ALT 12 Alkaline Phosphatase 75 Troponin I 0.04 H* Lipase 53 10/04/18 10/05/18 10/05/18 18:30 00:15 00:15 WBC 9.0 10.7 Hgb 13.3 12.4 Hct 40.6 37.3 Plt Count 278 244 INR 1.2 APTT Sodium Potassium Chloride Carbon Dioxide BUN Creatinine Glucose Calcium Magnesium Total Bilirubin AST ALT Alkaline Phosphatase Troponin I Lipase 10/05/18 10/05/18 10/05/18 00:15 07:15 12:57 WBC Hgb Hct Plt Count INR APTT Sodium 140 Potassium 3.3 L Chloride 106 Carbon Dioxide 25 BUN 14 Creatinine 0.89 Glucose 128 H Calcium 9.2 Magnesium 2.2 Total Bilirubin 0.7 AST 14 ALT 11 Alkaline Phosphatase 64 Troponin I 0.04 H* 0.03 < 0.03 Lipase - EKG Interpretation EKG results cardiology: personally reviewed (Sinus rhythm with nonspecific ST depressions) Consult Discharge Plan - Plan Referrals: Zandra Klein LOGISTICS ASSISTANT [Primary Care Provider] -
[2018-10-05] MEDS: Heparin 25,000 UNIT/250 ML D5W 25,000 UNIT/250 ML IV.SOLN IVC SCH (20:48)
[2018-10-06] MEDS: *HR* Heparin 5,000 UNIT/ML VIAL IVP PRN ×2 (00:53→14:17)
[2018-10-06 07:51] LABS: BUN/Creatinine Ratio 19 (6-26); Blood Urea Nitrogen 15 mg/dL (8-23); Calcium 9.3 mg/dL (8.6-10.3); Carbon Dioxide 26 mEq/L (23-29); Chloride 106 mEq/L (98-107); Glucose 105 mg/dL (70-105); Osmolality,Calculated 293 (280-300); Sodium 141 mEq/L (136-145); eGFR For African Americans > 60 (> 60); eGFR For Non-African Americans > 60 (> 60)
[2018-10-06] MEDS: Aspirin 81 MG TAB.CHEW PO SCH (08:55)
--- NOTE | 2018-10-06 09:20 | Cardiology Progress Note ---
Date of Encounter: 10/06/18 Time of Encounter: 08:30 Assessment and Plan (1) Chest pain Current Visit: Yes Status: Suspected Patient presents with symptoms concerning for unstable angina. Troponin 0.03, 0.04, 0.04, 0.[address] depressions on ECG. Pain free since admission. Blood pressure severely elevated upon admission. Continue IV heparin gtt, asa, statin, and BB. Plan for LHC with possible PCI in AM; patient is agreeable. TTE LVEF 60-65%, mild LVDD, mild AR, normal wall motion. NPO after MN, further recommendations to follow. Qualifiers: Chest pain type: chest pain due to myocardial ischemia Ischemic chest pain type: unstable angina pectoris Qualified Code(s): I20.0 - Unstable angina (2) HTN (hypertension) Current Visit: Yes Status: Suspected Continue beta josh. May add isosorbide mononitrate if blood pressure needs better control. Qualifiers: Hypertension type: essential hypertension Qualified Code(s): I10 - Essential (primary) hypertension Discussion w patient/family: The assessment and plan as outlined above was discussed with the patient and/or family members who expressed understanding and agreement. All questions were answered. Thank you for involving us in the care of your patient. Please call with any questions. The patient will be discussed and reviewed with Dr. Downey; changes to be made accordingly. Subjective Principal diagnosis: Unstable angina Interval history: Seen and examined. No complaints overnight. No chest pain reported. Discussed plan of care. Objective Vital Signs, Last 4 Hours Temp Pulse Resp BP Pulse Ox 10/06/18 07:23 98.1 F 79 18 134/79 96 General: Conversant, No Apparent Distress HEENT: Atraumatic, Normocephaly, Mucus Membranes Moist Cardiac: Reg Rate and Rhythm, Normal S1 and S2 Lungs: Normal Breath Sounds Neuro: Alert and responsive Abdomen: Soft Skin: No rashes noted on visualized skin Musculoskeletal: No Chest Wall Tenderness Extremities: No Edema, Normal Pulses Results 10/05/18 00:15 10/06/18 06:36 Lab Results 10/05/18 10/06/18 12:57 06:36 Sodium 141 Potassium 4.0 Chloride 106 Carbon Dioxide 26 BUN 15 Creatinine 0.80 Glucose 105 Calcium 9.3 Troponin I < 0.03 Active Medications Acetaminophen (Tylenol) 650 mg PO Q6HR PRN PRN Reason: Mild Pain/Fever Stop: 04/05/19 17:56 Hydrocodone Bitart/Acetaminophen ([place] 5-325 Mg) 1 tab PO Q6HR PRN PRN Reason: Moderate Pain Stop: 04/05/19 17:56 Aspirin (Aspirin) 81 mg PO DAILY [facility] Stop: 04/06/19 09:01 Last Admin: 10/06/18 08:55 Dose: 81 mg Documented by: Atorvastatin Calcium (Lipitor) 80 mg PO HS [facility] Stop: 04/05/19 21:01 Last Admin: 10/05/18 20:56 Dose: 80 mg Documented by: Heparin Sodium (Porcine) (Heparin) 4,000 unit IVP Q6HR PRN PRN Reason: SEE COMMENTS Stop: 04/05/19 18:21 Heparin Sodium (Porcine) (Heparin) 2,000 unit IVP Q6H PRN PRN Reason: SEE COMMENTS Stop: 04/05/19 18:21 Last Admin: 10/06/18 00:53 Dose: 2,000 unit Documented by: Heparin Sodium/Dextrose (Heparin 25,000 Unit/250 Ml D5w) 25,000 unit in 250 mls @ 8.818 mls/hr IVC .Q24H [facility]; Protocol Stop: 04/05/19 18:31 Last Titration: 10/06/18 08:55 Dose: 6 unit/kg/hr, 4.4 mls/hr Documented by: Metoprolol Tartrate (Lopressor) 12.5 mg PO BID [facility] Stop: 04/05/19 21:01 Last Admin: 10/06/18 08:55 Dose: 12.5 mg Documented by: Naloxone HCl (Narcan) 0.4 mg IVP Q2MPRN PRN PRN Reason: SEE COMMENTS Stop: 04/05/19 17:56 Ondansetron HCl (Zofran) 4 mg IVP Q8HR PRN PRN Reason: Nausea And Vomiting Stop: 04/05/19 17:56 - Imaging and Cardiology Echo: report reviewed Other Results: 12 hour tele: avg HR=72 SR. - EKG Interpretation EKG results cardiology: personally reviewed Consult Discharge Plan - Plan Referrals: Zandra Klein, HEALTH ADVISOR [Primary Care Provider] -
--- NOTE | 2018-10-06 09:48 | Internal Med Progress Note ---
Hospitalist Progress Note - Encounter Date of Encounter: 10/06/18 Time of Encounter: 08:50 - Subjective Interval History: Ms Reyes is currently admitted for unstable angina. She remains moderate to high risk due to potential for worsening cardiac status. Ms Reyes feels OK. No CP since admit. Eating breakfast. Tolerating heparin drip. Plan is for [facility] tomorrow. - Exam Vitals: Temp Pulse Resp BP Pulse Ox 98.1 F 79 18 134/79 96 10/06/18 07:23 10/06/18 07:23 10/06/18 07:23 10/06/18 07:23 10/06/18 07:23 Exam: General: Alert and oriented. Comfortable at this time. Eating breakfast. Skin: Normal color, no rash, H: Normocephalic. EENT: EOMI, Mucus membranes moist. Cardiovascular: Normal S1 & S2, Pulse regular. No tachycardia Lungs: Normal breath sounds, clear bilaterally. Abdomen: Soft, non-tender, Extremities: No deformity, no edema Neurological: Normal cognition and motor skills. Pulses: radial pulses normal +2. Rest of the physical exam is non contributory - Assessment and Plan (1) Chest pain Current Visit: Yes Status: Suspected Assessment and Plan: Pt presents to ED with complaints of L side chest pain radiating to L neck. Episodes have been associated with diaphoresis, dyspnea and fatigue. Appear to be increasing in number and intensity. To have LHC tomorrow. (2) HTN (hypertension) Current Visit: Yes Status: Suspected Assessment and Plan: Pt denies prior hx of HTN but BP was elevated in ED. Improved with metoprolol (3) HLD (hyperlipidemia) Current Visit: Yes Status: Chronic Assessment and Plan: Pt reports hx of HLD. Continue Atorvastatin (4) Abdominal pain Current Visit: Yes Status: Resolved Assessment and Plan: Pt reports episodes of epigastric discomfort as well. Mild increase in LFTs. ED US reportedly negative for stones (according to family). May need further work up after cardiac work up. (5) Hx of ovarian cancer Current Visit: Yes Status: Resolved Assessment and Plan: Surgical cure (6) Hypokalemia Current Visit: Yes Status: Resolved Assessment and Plan: Resolved. - Time Spent with Patient Total time spent is greater than 50% in coordination of care (as documented) at patient's floor/unit and/or counseling patient: Internal Medicine: Result - Labs CBC & Chem 7: 10/05/18 00:15 10/06/18 06:36 Labs: BMP 10/06/18 06:36 Sodium 141 Potassium 4.0 Chloride 106 Carbon Dioxide 26 BUN 15 Creatinine 0.80 Glucose 105 Calcium 9.3 Cardiac Enzymes 10/05/18 Range/Units 12:57 Troponin I < 0.03 (< 0.04) ng/mL - ABG Interpretation ABG results: PT/INR, D-dimer PT 13.2 Seconds (9.4-12.1) H 10/05/18 00:15 - Impressions Impressions Echocardiogram 10/04/18 17:56 Impressions: LVEF 60-65%. Normal LV chamber size and wall thickness. Mild left ventricular diastolic dysfunction. Normal right ventricular structure and function. Mild aortic regurgitation. No evidence of pulmonary hypertension. Left Ventricular Wall Motion: Rest Echo Findings All wall segments showed normal motion. Findings: Study Quality * Technically adequate exam. ECG Findings * Normal sinus rhythm. Left Ventricle * LVEF 60-65%. * Normal LV chamber size and wall thickness. * Mild left ventricular diastolic dysfunction. Right Ventricle * Normal right ventricular structure and function. Left Atrium * Normal left atrial size. Right Atrium * Normal right atrial size. Interatrial Septum * No evidence of PFO by color Doppler. Aortic Valve * Trileaflet aortic valve. * Mild aortic regurgitation. * No aortic stenosis. * Mildly sclerotic aortic valve leaflets. Mitral Valve * Normal mitral valve structure. * No mitral regurgitation. * No mitral stenosis. Tricuspid Valve * Normal tricuspid valve structure. * No tricuspid stenosis. * No evidence of pulmonary hypertension. * Mild tricuspid regurgitation. Pulmonic Valve * Trace pulmonic regurgitation. Aorta * Normally sized aortic root. Pericardium * The pericardium appears normal. IVC * Normal IVC dimensions and inspiratory collapse. Pulmonary Artery * Normal visualized portions of the main pulmonary artery. Consult Discharge Plan - Plan Referrals: Zandra Klein, PRODUCTION CONTROLLER [Primary Care Provider] - (1) Chest pain Qualifiers: Chest pain type: chest pain due to myocardial ischemia Ischemic chest pain type: unstable angina pectoris Qualified Code(s): I20.0 - Unstable angina (2) HTN (hypertension) Qualifiers: Hypertension type: essential hypertension Qualified Code(s): I10 - Essential (primary) hypertension (3) HLD (hyperlipidemia) Qualifiers: Hyperlipidemia type: mixed hyperlipidemia Qualified Code(s): E78.2 - Mixed hyperlipidemia (4) Abdominal pain Qualifiers: Abdominal location: epigastric Qualified Code(s): R10.13 - Epigastric pain
[2018-10-06] MEDS: Heparin 25,000 UNIT/250 ML D5W 25,000 UNIT/250 ML IV.SOLN IVC SCH ×2 (14:08→14:14)
[2018-10-07] MEDS: Aspirin 81 MG TAB.CHEW PO SCH (08:55)
[2018-10-07] MEDS ORDERED: 0.9 % Sodium Chloride 1,000 ML ONE (16:01)
[2018-10-07] MEDS ORDERED: *HR* Heparin 10,000 UNIT/10 ML VIAL ONE (16:01)
[2018-10-07] MEDS ORDERED: Heparin 1,000 UNITS/500 mL 500 ML ONE (16:01)
[2018-10-07] MEDS ORDERED: ISOVUE-370 200 ML INFUS..BTL ONE (16:02)
[2018-10-07] MEDS ORDERED: Nitroglycerin 1,000 MCG/10 ML VIAL IV ONE (16:02)
[2018-10-07] MEDS ORDERED: *HR* Midazolam HCl 2 MG/2 ML VIAL ONE (16:17)
[2018-10-07] MEDS ORDERED: *HR* FentaNYL (PF) 100 MCG/2 ML VIAL ONE (16:18)
--- NOTE | 2018-10-07 17:04 | Pre-Sedation Evaluation ---
Pre-sedation evaluation - Pre-sedation checklist Date of procedure: 10/07/18 Procedure: heart cath Recent Vitals: Last Vital Signs Temp 98.1 F 10/07/18 15:18 Pulse 73 10/07/18 15:18 Resp 16 10/07/18 15:18 BP 157/70 10/07/18 15:18 Pulse Ox 97 10/07/18 15:18 H&P (including ROS) documented in medical record: Yes Previous reaction to sedatives/anesthetics: No Dietary Status: NPO after Midnight Dentition: No loose teeth or bridges ASA Classification *see protocol: CLASS II-Mild systemic disease Cardiac Registry (Cardio Only) - Functional Capacity Functional Capacity: >=4 METS without symptoms - Clincal Frailty Scale Clinical Frailty Scale: Managing Well
--- NOTE | 2018-10-07 17:05 | Invasive Diagnostic Lab Proc ---
Name: Judy Reyes Date of Study: 10/07/2018 Date: 1950 Ht: 61.0in Medical Record#: [id number] Age: 68 Wt: 158.29lb Gender: Female BSA: 1.71 Order #: [id number] BMI: 29.92 Physicians Procedure Physician: Lindsey Zheng MD Referring MD: Referring MD: Staff Name Position Time In Prasanth Mata RN Monitor 04:16 PM Radha Billingsley RT (R) Scrub 04:17 PM Dayo Locke RN Busher Helper 04:17 PM Sherry Christian RT (R) RT orientee 04:17 PM Emeli Anders RN 04:52 PM Indications Indication Unstable Angina Procedures Performed Procedure L HRT ARTERY/VENTRICLE ANGIO Pre-Procedure Checklist Pt not NPO for procedure and MD aware. Plan of Care Patient will tolerate the procedure without complications. Adequate level of comfort will be maintained. Hemodynamics will remain stable Patient will recover from procedure without complications. Respiratory function will be maintained. Cardiac rhythm will remain stable. Patient temperature will be maintained. Patient and/or family have verbalized understanding of the procedure. Patient Education Chief Complaint/Reason for Test: Cardiac Cath Developmental Category: Geriatric (65+ years) Developmentally Appropriate for Age: Yes Learning Barriers: None Education Needs: Procedure Education Method: Verbal Information Taught: Cardiac Cath Educational Evaluation: Able to repeat information Intravenous Access Time IV Size Location DC'd Fluid/Drip Rate Units RN 08:34 AM 20g 1 1/4" Patent On Arrival Allergies No Known Allergies Vital Signs Time BP (mmHg) HR (bpm) O2 Sat. RR (bpm) LOC 04:17 PM / % 5 = Fully awake and oriented or at pre-proc level 04:17 PM / % 4 = Oriented but drowsy 04:32 PM / % 5 = Fully awake and oriented or at pre-proc level 04:22 PM 178 / 88 79 100 % 04:25 PM 163 / 78 81 100 % 14 04:30 PM 152 / 71 72 99 % 18 04:36 PM 169 / 78 68 100 % 04:40 PM 163 / 74 75 100 % 14 04:45 PM 175 / 83 84 100 % 24 Procedural Medications Time Medication Dose Units Method Given By 04:22 PM Oxygen 2 L/min nasal cannula Dayo Locke RN 04:22 PM Versed 1 mg Intravenous Dayo Locke RN 04:22 PM Fentanyl 50 mcg Intravenous Dayo Locke RN 04:35 PM Lidocaine 2% 19 ml Subcutaneous Lindsey Zheng MD ASA Classification: CLASS II- Mild systemic disease (i.e. well-controlled diabetes, hypertension, asthma, cigarette smoking) Oriana Score Preprocedure Postprocedure Activity 2- Moves 4 extremities sustained head lift Activity 2- Moves 4 extremities sustained head lift Circulation 2- SBP +/= 20 points of pre-anesthetic level Circulation 2- SBP +/= 20 points of pre-anesthetic level Consciousness 2- Awake and alert oriented x 3 Consciousness 2- Awake and alert oriented x 3 O2 Saturation 2- Able to maintain O2 satruation of 92% on room air O2 Saturation 2- Able to maintain O2 satruation of 92% on room air Respiratory 2- Able to deep breathe and cough well Respiratory 2- Able to deep breathe and cough well Total Score 10 Total Score 10 Contrast Agent: Isovue Diagnostic Contrast: 51 ml Total Contrast: 51 ml Fluoro Dose: 26 mGy Procedure Log Time Note Enter By 04:06 PM CathStat 04:16 PM 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 Informed consent was obtained. tsites 04:17 PM Time: 16:17 Patient comfortable and pain free: Yes tsites 04:17 PM Time: 16:17LOC: 5 = Fully awake and oriented or at pre-proc level tsites 04:18 PM Procedure start 16:18 tsites 04:20 PM Vitals capture started with the following parameters, Patient=Adult, Interval=5 min, Initial Xfvvrfmv=013 mmHg, Deflation Rate=5 mmHg, Cuff placed on Left Arm 04:20 PM Recorded ECG: HR=83 Condition=Condition 1 04:22 PM HR=79 bpm, ZESQ=747/88 mmhg, YtM0=443.0 %, EtCO2=35 mmHg, Comment=NSR 04:22 PM Time: 16:22 Oxygen on at 2 L/min per nasal cannula by Dayo Locke RN tsites 04:22 PM Time: 16:22 Versed 1 mg Intravenous Given by Dayo Locke RN tsites 04: PM Time: 16:22 Fentanyl 50 mcg Intravenous Given by Dayo Locke RN tsites 04: PM Hair removed from procedure site in holding area using clippers. Bilateral groin prepped with Chloraprep by Mackenzie Garcia (R), then patient was draped. Skin intact. tsites 04:25 PM HR=81 bpm, FRSF=824/78 mmhg, EgM0=861.0 %, Resp=14 B/min, Comment=NSR 04:26 PM Pressure channel 1 zeroed. 04:30 PM HR=72 bpm, TXPU=750/71 mmhg, SpO2=99.0 %, Resp=18 B/min, EtCO2=35 mmHg, Comment=NSR 04:32 PM Time: 16:17 Patient comfortable and pain free: Yes oparker 04:32 PM Time: 16:17LOC: 4 = Oriented but drowsy oparker 04:33 PM ASA Class CLASS II- Mild systemic disease (i.e. well-controlled diabetes, hypertension, asthma, cigarette smoking) oparker 04:34 PM Time out was performed according to hospital policy. Conscious sedation and anesthesia was achieved (see medication log with in this report above) oparker 04:36 PM Time: 16:35 19 ml Lidocaine 2% to right groin Subcutaneous Given by Lindsey Zheng MD oparker 04:36 PM HR=68 bpm, NMCN=330/78 mmhg, VtI9=347.0 %, EtCO2=36 mmHg, Comment=NSR 04:36 PM Micro-Introducer Kit utilized for sheath placement oparker 04:37 PM Access obtained by percutaneous puncture. 6Fr 10cm Terumo [place] sheath placed in right Femoral artery. [id number] oparker 04:38 PM 0.035 145cm Navilyst 3mmJ wire [id number] oparker 04:38 PM 5Fr FR 4 catheter inserted over the wire DNC oparker 04:38 PM Recorded Pressure: Ao, HR=74, Condition=Condition 1 (Aorta) Ao 178/76/118 04:39 PM Recorded Pressure: LV, HR=85, Condition=Condition 1 (Left Ventricle) LV 147/5/37 04:39 PM Recorded Pressure: LV, Ao, HR=73, Condition=Condition 1 (Left Ventricle) LV 164/6/7, (Aorta) Ao 167/80/117 04:40 PM RCA angiography performed in multiple views. oparker 04:40 PM HR=75 bpm, HFJG=796/74 mmhg, CjK2=001.0 %, Resp=14 B/min, Comment=NSR 04:41 PM Catheter removed oparker 04:42 PM Recorded Pressure: Ao, HR=74, Condition=Condition 1 (Aorta) Ao 162/82/116 04:42 PM 5Fr FL 4 catheter inserted over the wire DNC oparker 04:42 PM LCA angiography performed in multiple views. oparker 04:44 PM Catheter removed oparker 04:44 PM Wire removed oparker 04:44 PM Procedure completed at 16:44 10/07/2018 oparker 04:45 PM Sign out completed: Radiation Dose 91.32 mGy, 26.5 mGy/cm2 Fluoro Time: 2.2 Isovue 370 - 200ml contrast 51 ml given by Lindsey Zheng MD. Complications: None. The patient was discharged out of the shop laborer in stable condition. Sedation minutes 24. Cardiac Rehab Consult needed: No. Confirmed administered medications: Yes oparker 04:45 PM Isovue 370 - 200ml,1 Bottle(s) used. oparker 04:45 PM Arterial sheath pulled, Mynx closure device used and was Successful [id number] S/N. oparker 04:45 PM Estimated Blood Loss: minimal oparker 04:45 PM HR=84 bpm, UWRF=549/83 mmhg, UyZ3=673.0 %, Resp=24 B/min, EtCO2=35 mmHg, Comment=NSR 04:46 PM Post ECG NSR oparker 04:47 PM Did you address LYLA flow and Dominance? YesCoronary Dominance: Co-dominant oparker 04:47 PM Post Blood Pressure 175/83 oparker 04:47 PM 16:47 Post Pulses Bilateral DP 2+ oparker 04:47 PM Information taught Cardiac Cath and Mynx oparker 04:47 PM Education needs Procedure, Plan of Care, and Disease Process oparker 04:47 PM Learning barriers :None oparker 04:47 PM Education Methods Verbal oparker 04:48 PM Time: 16:32LOC: 5 = Fully awake and oriented or at pre-proc level oparker 04:48 PM Time: 16:32 Patient comfortable and pain free: Yes oparker 04:48 PM Lesion found in Mid LAD. Pre Stenosis: 70 Pre LYLA Flow: oparker 04:49 PM Lesion found in Proximal Circumflex. Pre Stenosis: 90 Pre LYLA Flow: oparker 04:49 PM Lesion found in Distal Circumflex. Pre Stenosis: 90 Pre LYLA Flow: oparker 04:49 PM Lesion found in 1st Marginal. Pre Stenosis: 50 Pre LYLA Flow: oparker 04:49 PM Lesion found in Mid RCA. Pre Stenosis: 65 Pre LYLA Flow: oparker 04:50 PM Lesion found in Proximal RCA. Pre Stenosis: 70 Pre LYLA Flow: oparker 04:50 PM Mid/Distal Left Anterior Descending Coronary Artery and diagonal branches with 70% stenosis. If graft is supplying this area, 0 % stenosis oparker 04:50 PM Circumflex, Obtuse Marginal, Left Posterior Descending, and Left Posterolateral Coronary Arteries with 90 % stenosis. If graft is supplying this area, 0 % stenosis oparker 04:50 PM Right Coronary, Right Posterior Descending Arteries with Right Posterolateral and Acute Marginal branches with 70 % stenosis. If graft is supplying this area, 0 % stenosis oparker 04:52 PM Emeli Anders RN Position: Time in: 16:52 oparker 04:53 PM Report given to Kay GODINEZ Pt taken to 3B Room #49. 16:53 oparker 04:56 PM Site status No bleeding/hematoma - Rt Groin as reported by Sites, Mackenzie RT (R) at 16:56 oparker 04:56 PM Opsite applied oparker 04:56 PM Patient out of room: 16:56 oparker Complications Complication None Hemodynamics Pressures Site Systolic/A Wave Diastolic/V Wave Mean AO 178 76 118 LV 147 5 37 LV 164 6 7 AO 167 80 117 AO 162 82 116 Post Procedure Information Blood Pressure: 175/83 mmHg Rhythm: NSR Post procedural instructions were given Surgery consult for CABG Closure Device Time Device Success/Fail 10/07/2018 4:45:00 PM MynxGrip Site Checks Time Location Status Staff Sheath In? Note 04:56 PM Rt Groin No bleeding/hematoma Sites, Mackenzie RT (R) Pulses Time Site Pre-Procedure Post-Procedure Note 10/07/2018 8:34:00 AM Bilateral DP & PT 2+ 10/07/2018 8:35:00 AM Bilateral radial 2+ 4:47:00 PM Bilateral DP 2+ Updated by Mackenzie Radha RT (R) on 10/07/2018 4:57:29 PM Mackenzie Radha, RT electronically signed on 10/07/2018 4:58:13 PM with status of Final
--- NOTE | 2018-10-07 18:40 | Cardiothoracic Consult Note ---
Date of Encounter: 10/07/18 Time of Encounter: 18:37 Assessment and Plan (1) Chest pain Current Visit: Yes Status: Suspected The assessment and plan as outlined above was discussed with the patient and/or family members who expressed understanding and agreement. All questions were answered. The patient has triple-vessel disease with bypassable vessels. The options of medical therapy, PTCA with stent and open heart surgery were discussed with the patient and her family. They wish to proceed with open heart surgery at [facility]. We will schedule her for Sunday. She will be maintained on a heparin drip until then. Risks of surgery include , infection, stroke, myocardial infarction, bleeding, clots around the heart, renal or respiratory failure, acute or chronic graft closure, phrenic nerve injury and sternal dehiscence. The procedure, its risks, benefits and alternatives were explained and she wishes to proceed. They have no questions. Qualifiers: Chest pain type: chest pain due to myocardial ischemia Ischemic chest pain type: unstable angina pectoris Qualified Code(s): I20.0 - Unstable angina - History of Present Illness History of present illness: Ms. Reyes is a 68 year old female The patient is a [id number]-[id number] female who presented with chest pain that went into her left arm and jaw. This was associated with shortness of breath and occurred during exertion. Troponin was 0.04. Echocardiogram revealed an ejection fraction of 60-65% with mild aortic valve regurgitation. Cardiac catheterization revealed a 70% LAD lesion, 90% circumflex lesion and 70% right coronary artery lesion with bypassable vessels. Past medical history is notable for ovarian cancer that was treated with surgery. The patient used to smoke but quit in 1979. She does have hypertension and hypercholesterolemia, but no diabetes. Family history is positive for coronary artery disease. Review of systems is negative for stroke or TIA. No history of saphenous vein varicosities or strippings. Past Med Surg Social Fam HX - Past Medical History Medical history: non-contributory Psychiatric history: no psych history - Past Surgical History Additional surgical history: fistula repair - colonoscopy - Social History Smoking Status: Never smoker Smokeless Tobacco Status: No Alcohol use: none Drug use: none - Family History Brother Hx Family Cardiac Disorders: Yes (CAD) Medications and Allergies Atorvastatin Calcium [Lipitor] 20 mg PO HS 03/14/17 [History] Cholecalciferol (D-3) [Vitamin D] 2,000 unit PO DAILY 10/05/18 [History] Multivitamin [Daily Multiple Vitamin] 1 tab PO DAILY 10/06/18 [History] Omeprazole [PriLOSEC] 40 mg PO DAILY 10/06/18 [History] Turmeric 400 mg PO DAILY 10/06/18 [History] Allergy/AdvReac Type Severity Reaction Status Date / Time No Known Allergies Allergy Verified 10/06/18 12:23 All Systems Review: The remainder of the systems were reviewed and are negative Physical Examination Vital Signs, Last 4 Hours Temp Pulse Resp BP Pulse Ox 10/07/18 17:58 70 16 148/82 98 10/07/18 17:25 66 16 160/77 98 10/07/18 17:10 73 16 159/76 97 10/07/18 15:18 98.1 F 73 16 157/70 97 Pupils are equal, round and reactive to light and accommodation. No oral lesions. Neck is supple. Trachea in the midline. No thyromegaly or carotid bruits. Lungs are clear to percussion and auscultation. Heart is in a regular rate and rhythm. Abdomen is benign. No tenderness, rebound or guarding. She is status post resection of ovarian cancer. Extremities without edema. No saphenous vein varicosities or strippings. Cranial nerves, motor and sensory intact. Results 10/05/18 00:15 10/06/18 06:36 Consult Discharge Plan - Plan Referrals: Zandra Klein CNP [Primary Care Provider] -
--- NOTE | 2018-10-07 19:18 | Internal Med Progress Note ---
Hospitalist Progress Note - Encounter Date of Encounter: 10/07/18 Time of Encounter: 17:30 - Subjective Interval History: Ms Reyes is currently admitted for unstable angina. She remains moderate to high risk due to potential for worsening cardiac status. Ms Reyes is feeling OK. She had LHC and needs CABG. She feels OK at this time. No fever or chills. No CP. - Exam Vitals: Temp Pulse Resp BP Pulse Ox 98.1 F 70 16 149/86 97 10/07/18 15:18 10/07/18 18:30 10/07/18 18:30 10/07/18 18:30 10/07/18 18:30 Exam: General: Alert and oriented. Comfortable at this time. Skin: Normal color, no rash, H: Normocephalic. EENT: EOMI, Mucus membranes moist. Cardiovascular: Not tachycardic Lungs: No wheeze Abdomen: Soft, non-tender, Extremities: No deformity, no edema Neurological: Normal cognition and motor skills. Pulses: radial pulses normal +2. Rest of the physical exam is non contributory - Assessment and Plan (1) Chest pain Current Visit: Yes Status: Acute Assessment and Plan: Pt presents to ED with complaints of L side chest pain radiating to L neck. Episodes have been associated with diaphoresis, dyspnea and fatigue. Appear to be increasing in number and intensity. LHC with three vessel disease. To have CABG on Sunday. (2) HTN (hypertension) Current Visit: Yes Status: Suspected Assessment and Plan: Pt denies prior hx of HTN but BP was elevated in ED. On Metoprolol. (3) HLD (hyperlipidemia) Current Visit: Yes Status: Chronic Assessment and Plan: Pt reports hx of HLD. Continue Atorvastatin (4) Hx of ovarian cancer Current Visit: Yes Status: Resolved Assessment and Plan: Surgical cure - Time Spent with Patient Total time spent is greater than 50% in coordination of care (as documented) at patient's floor/unit and/or counseling patient: Internal Medicine: Result - Labs CBC & Chem 7: 10/05/18 00:15 10/06/18 06:36 - ABG Interpretation ABG results: PT/INR, D-dimer PT 13.2 Seconds (9.4-12.1) H 10/05/18 00:15 Consult Discharge Plan - Plan Referrals: Zandra Klein, REFRACTORY MANAGER [Primary Care Provider] - (1) Chest pain Qualifiers: Chest pain type: chest pain due to myocardial ischemia Ischemic chest pain type: unstable angina pectoris Qualified Code(s): I20.0 - Unstable angina (2) HTN (hypertension) Qualifiers: Hypertension type: essential hypertension Qualified Code(s): I10 - Essential (primary) hypertension (3) HLD (hyperlipidemia) Qualifiers: Hyperlipidemia type: mixed hyperlipidemia Qualified Code(s): E78.2 - Mixed hyperlipidemia
--- NOTE | 2018-10-07 20:29 | Electrocardiograph Report ---
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
[2018-10-08 02:48] LABS: BUN/Creatinine Ratio 26 (6-26); Blood Urea Nitrogen 23 mg/dL (8-23); Calcium 9.4 mg/dL (8.6-10.3); Carbon Dioxide 27 mEq/L (23-29); Chloride 104 mEq/L (98-107); Glucose 98 mg/dL (70-105); Hematocrit 39.4 % (35.3-44.9); Hemoglobin 12.7 g/dL (11.5-15.4); Magnesium 2.2 mg/dL (1.6-2.6); Mean Corpuscular HGB Conc 32.2 g/dL (31.6-35.5); Mean Corpuscular Hemoglobin 29.5 pg (28.0-33.3); Mean Corpuscular Volume 91.4 fL (83.0-100.0); Mean Platelet Volume 9.8 fL (9.4-12.4); Osmolality,Calculated 292 (280-300); Platelet Count 243 K/mcL (140-400); Potassium 3.8 mEq/L (3.5-5.1); Red Blood Count 4.31 M/mcL (3.82-4.97); Red Cell Distribution Width 12.5 % (11.5-14.5); Sodium 139 mEq/L (136-145); White Blood Count 7.7 K/mcL (4.3-11.1); eGFR For African Americans > 60 (> 60); eGFR For Non-African Americans > 60 (> 60)
[2018-10-08] MEDS: *HR* Heparin 5,000 UNIT/ML VIAL IVP PRN ×2 (03:08→16:09)
[2018-10-08] MEDS ORDERED: CeFAZolin Syr 2,000MG/20 ML 2,000 MG/20 ML SYRINGE IVPB ONE (07:32)
--- NOTE | 2018-10-08 07:32 | Cardiothoracic Progress Note ---
Date of Encounter: 10/08/18 Time of Encounter: 07:30 - Assessment and plan (1) Chest pain Current Visit: Yes Status: Acute We will schedule surgery for tomorrow. The patient has no questions. Qualifiers: Chest pain type: chest pain due to myocardial ischemia Ischemic chest pain type: unstable angina pectoris Qualified Code(s): I20.0 - Unstable angina - Subjective Interval history: Patient has had no chest pain and no angina. Vital Signs, Last 4 Hours Temp Pulse Resp BP Pulse Ox 10/08/18 07:16 97.6 F 81 16 152/73 99 10/08/18 03:51 97.5 F L 68 16 131/78 98 Weight 10/06/18 10/07/18 10/08/18 23:59 23:59 23:59 Weight 73.4 kg 71.8 kg 71.6 kg Lungs are clear to percussion and auscultation. Heart is in a normal sinus rhythm. - Labs 10/08/18 01:50 10/08/18 01:50 Lab Results, Last 24 hours 10/08/18 10/08/18 01:50 01:50 WBC 7.7 Hgb 12.7 Hct 39.4 Plt Count 243 Sodium 139 Potassium 3.8 Chloride 104 Carbon Dioxide 27 BUN 23 Creatinine 0.90 Glucose 98 Calcium 9.4 Magnesium 2.2 Consult Discharge Plan - Plan Referrals: Zandra Klein CNP [Primary Care Provider] -
[2018-10-08] MEDS: Aspirin 81 MG TAB.CHEW PO SCH (09:28)
--- NOTE | 2018-10-08 10:37 | Cardiology Progress Note ---
Date of Encounter: 10/08/18 Time of Encounter: 10:30 Assessment and Plan (1) Chest pain Current Visit: Yes Status: Acute Patient presents with symptoms concerning for unstable angina. Troponin 0.03, 0.04, 0.04, 0.[address] depressions on ECG. Pain free since admission. Blood pressure severely elevated upon admission. Continue asa, statin, and BB. TTE LVEF 60-65%, mild LVDD, mild AR, normal wall motion. [facility] 10/07/18: severe 3v CAD, recommend CABG evaluation vs. complex high risk PCI. CT surgery consulted and plan for CABG in AM. No new symptoms overnight. Cardiology will sign-off, will coordinate outpatient follow-up in 4-5 weeks. Please call with questions. Qualifiers: Chest pain type: chest pain due to myocardial ischemia Ischemic chest pain type: unstable angina pectoris Qualified Code(s): I20.0 - Unstable angina (2) HTN (hypertension) Current Visit: Yes Status: Suspected Continue beta josh. May add isosorbide mononitrate if blood pressure needs better control. Qualifiers: Hypertension type: essential hypertension Qualified Code(s): I10 - Essential (primary) hypertension Discussion w patient/family: The assessment and plan as outlined above was discussed with the patient and/or family members who expressed understanding and agreement. All questions were answered. Thank you for involving us in the care of your patient. Please call with any questions. The patient will be discussed and reviewed with Dr. Nieves; changes to be made accordingly. Subjective Principal diagnosis: Unstable angina Interval history: Seen and examined. No new complaints overnight. No issues with right groin cath site. Objective Vital Signs, Last 4 Hours Temp Pulse Resp BP Pulse Ox 10/08/18 07:16 97.6 F 81 16 152/73 99 General: Conversant, No Apparent Distress HEENT: Atraumatic, Normocephaly, Mucus Membranes Moist Neck: No JVD, Normal carotid pulses Cardiac: Reg Rate and Rhythm, Normal S1 and S2, No Murmur Lungs: Normal Breath Sounds, No Wheeze, Rales, Rhonchi Neuro: Alert and responsive, No focal deficits noted Abdomen: Soft, Non-Tender Skin: No rashes noted on visualized skin Musculoskeletal: No Chest Wall Tenderness Extremities: No Clubbing, No Cyanosis, No Edema, Normal Pulses Other: right groin: no hematoma or oozing noted at site. +2 DP/PT pulses. Results 10/08/18 01:50 10/08/18 01:50 Lab Results 10/08/18 10/08/18 01:50 01:50 WBC 7.7 Hgb 12.7 Hct 39.4 Plt Count 243 Sodium 139 Potassium 3.8 Chloride 104 Carbon Dioxide 27 BUN 23 Creatinine 0.90 Glucose 98 Calcium 9.4 Magnesium 2.2 Active Medications Acetaminophen (Tylenol) 650 mg PO Q6HR PRN PRN Reason: Mild Pain/Fever Stop: 04/05/19 17:56 Hydrocodone Bitart/Acetaminophen (Wells 5-325 Mg) 1 tab PO Q6HR PRN PRN Reason: Moderate Pain Stop: 04/05/19 17:56 Aspirin (Aspirin) 81 mg PO DAILY [facility] Stop: 04/06/19 09:01 Last Admin: 10/08/18 09:28 Dose: 81 mg Documented by: Aspirin (Aspirin) 81 mg PO 0600 ONE Stop: 10/09/18 06:01 Atorvastatin Calcium (Lipitor) 80 mg PO HS [facility] Stop: 04/05/19 21:01 Last Admin: 10/07/18 20:01 Dose: 80 mg Documented by: Chlorhexidine Gluconate (Chlorhexidine Rinse) 15 ml MM BID OSMIN Stop: 10/09/18 09:01 Heparin Sodium (Porcine) (Heparin) 4,000 unit IVP Q6HR PRN PRN Reason: SEE COMMENTS Stop: 04/05/19 18:21 Heparin Sodium (Porcine) (Heparin) 2,000 unit IVP Q6H PRN PRN Reason: SEE COMMENTS Stop: 04/05/19 18:21 Last Admin: 10/08/18 03:08 Dose: 2,000 unit Documented by: Heparin Sodium/Dextrose (Heparin 25,000 Unit/250 Ml D5w) 25,000 unit in 250 mls @ 8.818 mls/hr IVC .Q24H OSMIN; Protocol Stop: 04/05/19 18:31 Last Titration: 10/08/18 09:29 Dose: 10.03 unit/kg/hr, 7.4 mls/hr Documented by: Metoprolol Tartrate (Lopressor) 12.5 mg PO BID OSMIN Stop: 04/05/19 21:01 Last Admin: 10/08/18 09:25 Dose: 12.5 mg Documented by: Metoprolol Tartrate (Lopressor) 25 mg PO 0600 ONE Stop: 10/09/18 06:01 Naloxone HCl (Narcan) 0.4 mg IVP Q2MPRN PRN PRN Reason: SEE COMMENTS Stop: 04/05/19 17:56 Omeprazole (Prilosec) 40 mg PO DAILY@0730 [facility] Stop: 04/09/19 07:31 Last Admin: 10/08/18 09:27 Dose: 40 mg Documented by: Ondansetron HCl (Zofran) 4 mg IVP Q8HR PRN PRN Reason: Nausea And Vomiting Stop: 04/05/19 17:56 - Imaging and Cardiology Echo: report reviewed Cardiac cath: report reviewed - EKG Interpretation EKG results cardiology: personally reviewed Consult Discharge Plan - Plan Referrals: Zandra Klein, ROOFING MACHINE OPERATOR [Primary Care Provider] -
--- NOTE | 2018-10-08 14:13 | Anesthesia Evaluation PreOp ---
Date of Encounter: 10/08/18 Time of Encounter: 14:32 - Past History Planned Operation: CABG Cardiac History: HTN (started on metoprolol this admission), Hyperlipidemia, Oth er (CAD) Pulmonary History: Former smoker (quit ) LUNG SPLITTER History: Denies Any Significant HX Other Medical History: GERD Anesthesia History: No Prior Anesthetic Complications, Past Anesthesia (hyster ectomy, rectal fistula) : No Alcohol Use: none Drug use: none Medications and Allergies Atorvastatin Calcium [Lipitor] 20 mg PO HS 03/14/17 [History] Cholecalciferol (D-3) [Vitamin D] 2,000 unit PO DAILY 10/05/18 [History] Multivitamin [Daily Multiple Vitamin] 1 tab PO DAILY 10/06/18 [History] Omeprazole [PriLOSEC] 40 mg PO DAILY 10/06/18 [History] Turmeric 400 mg PO DAILY 10/06/18 [History] Allergy/AdvReac Type Severity Reaction Status Date / Time No Known Allergies Allergy Verified 10/06/18 12:23 - Meds/Allergy Pre-op Review Medications Reviewed: Yes Allergies Reviewed: Yes Beta Blockers on Current Med List: Yes (metoprolol) Anesthesia Results - Labs 10/08/18 01:50 10/08/18 01:50 - Imaging EKG: report reviewed Additional studies: 10/07/2018 LEFT HEART CATH Indications: Unstable Angina Worsening Angina Impressions: There is severe three vessel coronary artery disease. Recommendations: Optimal medical therapy of patient's disease. Aggressive risk factor modification. Suggest patient have Urgent coronary artery bypass surgery Vs complex 3 vessel PCI Coronary Dominance: Co-dominant Lesion Findings/Interventions * Left Main Coronary Artery The LMCA is angiographically free of disease. * Left Anterior Descending There is a 70% stenosis in the Mid LAD. * Circumflex There is a 90% stenosis in the Proximal Circumflex. There is a 90% stenosis in the Distal Circumflex. There is a 50% stenosis in the 1st Marginal. * Right Coronary Artery There is a 70% stenosis in the Proximal RCA. There is a 65% stenosis in the Mid RCA. 10/04/2018 echocardiogram Impressions: LVEF 60-65%. Normal LV chamber size and wall thickness. Mild left ventricular diastolic dysfunction. Normal right ventricular structure and function. Mild aortic regurgitation. No evidence of pulmonary hypertension. Left Ventricular Wall Motion: Rest Echo Findings All wall segments showed normal motion. Findings: Study Quality * Technically adequate exam. ECG Findings * Normal sinus rhythm. Left Ventricle * LVEF 60-65%. * Normal LV chamber size and wall thickness. * Mild left ventricular diastolic dysfunction. Right Ventricle * Normal right ventricular structure and function. Left Atrium * Normal left atrial size. Right Atrium * Normal right atrial size. Interatrial Septum * No evidence of PFO by color Doppler. Aortic Valve * Trileaflet aortic valve. * Mild aortic regurgitation. * No aortic stenosis. * Mildly sclerotic aortic valve leaflets. Mitral Valve * Normal mitral valve structure. * No mitral regurgitation. * No mitral stenosis. Tricuspid Valve * Normal tricuspid valve structure. * No tricuspid stenosis. * No evidence of pulmonary hypertension. * Mild tricuspid regurgitation. Pulmonic Valve * Trace pulmonic regurgitation. Aorta * Normally sized aortic root. Pericardium * The pericardium appears normal. IVC * Normal IVC dimensions and inspiratory collapse. Pulmonary Artery * Normal visualized portions of the main pulmonary artery. Anesthesia Exam Vital Signs/O2 Sat/Glucose, Most Recent Temp Pulse Resp BP Pulse Ox 98.0 F 69 18 152/71 97 10/08/18 10:48 10/08/18 10:48 10/08/18 10:48 10/08/18 10:48 10/08/18 10:48 Weight: 71 kg NPO (# of Hours): midnight - HEENT Pupil (Motor): Pupils equal Mallampati: II Teeth: Missing Oral Opening: Greater than 3 - LUNG SPLITTER LOC: Oriented LUNG SPLITTER Motor: Normal RUE, Normal LUE, Normal RLE, Normal LLE, Normal Face LUNG SPLITTER Sensory: Normal: RUE, LUE, RLE, LLE, Face - Cardiac Rhythm: Regular Murmur: None - Pulmonary Breath Sounds: bilateral Clear Respiratory Effort: Symmetrical Anesthesia Assess/Plan ASA Score: 4 Level of consciousness: Cooperative, Oriented Anesthetic Plan: General Monitoring Plan: Standard Monitors, A-Line, CVC, PAC, AVELINA Recovery Plan: ICU
[2018-10-08] MEDS: Heparin 25,000 UNIT/250 ML D5W 25,000 UNIT/250 ML IV.SOLN IVC SCH (15:56)
[2018-10-08 16:08] LABS: Bilirubin,Urine Negative (Negative); Blood,Urine Small (Negative); Clarity,Urine Clear (Clear); Color,Urine Yellow (Yellow); Glucose,Urine (UA) Normal (Normal); Ketones,Urine Negative (Negative); Leukocyte Esterase,Urine Negative (Negative); Nitrite,Urine Negative (Negative); PH,Urine 5.5 pH Units (5.0-8.0); Protein,Urine Negative (Neg-Trace); Specific Gravity,Urine 1.023 (1.010-1.025); Urobilinogen,Urine Normal (Normal)
[2018-10-08 16:10] LABS: Bacteria,Urine None Seen per hpf (None-Few); Hyaline Casts,Urine None Seen per lpf (None-Few); RBC,Urine 15-30 per hpf (0-3); Squamous Epithelial Cell,Urine Many per lpf (None-Few)
--- NOTE | 2018-10-08 17:26 | Internal Med Progress Note ---
Hospitalist Progress Note - Encounter Date of Encounter: 10/08/18 Time of Encounter: 14:30 - Subjective Interval History: Ms Reyes is currently admitted for unstable angina. To have CABG tomorrow. Ms Reyes is feeling OK. No fever or chills. No CP. Plan for CABG tomorrow. - Exam Vitals: Temp Pulse Resp BP Pulse Ox 98.0 F 74 18 146/79 98 10/08/18 16:13 10/08/18 16:13 10/08/18 16:13 10/08/18 16:13 10/08/18 16:13 Exam: General: Alert and oriented. Comfortable at this time. Skin: Normal color, no rash, H: Normocephalic. EENT: EOMI, Mucus membranes moist. Cardiovascular: Not tachycardic Lungs: No wheeze Abdomen: Soft, non-tender, Extremities: No deformity, no edema Neurological: Normal cognition and motor skills. Pulses: radial pulses normal +2. Rest of the physical exam is non contributory - Assessment and Plan (1) Chest pain Current Visit: Yes Status: Acute Assessment and Plan: Pt presents to ED with complaints of L side chest pain radiating to L neck. Episodes have been associated with diaphoresis, dyspnea and fatigue. Appear to be increasing in number and intensity. Planning to have CABG in AM. (2) HTN (hypertension) Current Visit: Yes Status: Suspected Assessment and Plan: Pt denies prior hx of HTN but BP was elevated in ED. On Metoprolol. Fairly controlled at this time. (3) HLD (hyperlipidemia) Current Visit: Yes Status: Chronic Assessment and Plan: Pt reports hx of HLD. Continue Atorvastatin (4) Hx of ovarian cancer Current Visit: Yes Status: Resolved Assessment and Plan: Surgical cure - Time Spent with Patient Total time spent is greater than 50% in coordination of care (as documented) at patient's floor/unit and/or counseling patient: Internal Medicine: Result - Labs CBC & Chem 7: 10/08/18 01:50 10/08/18 01:50 Labs: Short CBC 10/08/18 Range/Units 01:50 WBC 7.7 (4.3-11.1) K/mcL Hgb 12.7 (11.5-15.4) g/dL Hct 39.4 (35.3-44.9) % Plt Count 243 (140-400) K/mcL BMP 10/08/18 01:50 Sodium 139 Potassium 3.8 Chloride 104 Carbon Dioxide 27 BUN 23 Creatinine 0.90 Glucose 98 Calcium 9.4 Urine 10/08/18 Range/Units 15:53 Urine Color Yellow (Yellow) Urine Clarity Clear (Clear) Urine pH 5.5 (5.0-8.0) pH Units Ur Specific [place] 1.023 (1.010-1.025) Urine Protein Negative (Neg-Trace) mg/dL Urine Glucose (UA) Normal (Normal) mg/dL - ABG Interpretation ABG results: PT/INR, D-dimer PT 13.2 Seconds (9.4-12.1) H 10/05/18 00:15 Consult Discharge Plan - Plan Referrals: Zandra Klein, TASHA [Primary Care Provider] - (1) Chest pain Qualifiers: Chest pain type: chest pain due to myocardial ischemia Ischemic chest pain type: unstable angina pectoris Qualified Code(s): I20.0 - Unstable angina (2) HTN (hypertension) Qualifiers: Hypertension type: essential hypertension Qualified Code(s): I10 - Essential (primary) hypertension (3) HLD (hyperlipidemia) Qualifiers: Hyperlipidemia type: mixed hyperlipidemia Qualified Code(s): E78.2 - Mixed hyperlipidemia
[2018-10-08] MEDS: Chlorhexidine Rinse 15 ML MOUTHWASH MM SCH (21:04)
[2018-10-09 04:38] LABS: Basophils % 0.3 %; Eosinophils # 0.1 K/mcL (0.0-0.6); Eosinophils % 1.2 %; Hematocrit 36.9 % (35.3-44.9); Hemoglobin 12.4 g/dL (11.5-15.4); Immature Granulocytes % 0.2 % (0-4); Lymphocytes # 3.4 K/mcL (0.6-4.6); Lymphocytes % 36.3 %; Mean Corpuscular HGB Conc 33.6 g/dL (31.6-35.5); Mean Corpuscular Hemoglobin 29.7 pg (28.0-33.3); Mean Corpuscular Volume 88.5 fL (83.0-100.0); Mean Platelet Volume 9.8 fL (9.4-12.4); Monocytes # 0.7 K/mcL (0.0-1.3); Monocytes % 7.4 %; Neutrophils # 5.1 K/mcL (1.6-8.9); Platelet Count 225 K/mcL (140-400); Red Blood Count 4.17 M/mcL (3.82-4.97); Red Cell Distribution Width 12.7 % (11.5-14.5); Segmented Neutrophils % 54.6 %; White Blood Count 9.2 K/mcL (4.3-11.1)
[2018-10-09 04:48] LABS: BUN/Creatinine Ratio 25 (6-26); Blood Urea Nitrogen 20 mg/dL (8-23); Calcium 9.5 mg/dL (8.6-10.3); Carbon Dioxide 23 mEq/L (23-29); Chloride 105 mEq/L (98-107); Glucose 112 mg/dL (70-105); Osmolality,Calculated 289 (280-300); Potassium 3.4 mEq/L (3.5-5.1); Sodium 138 mEq/L (136-145); eGFR For African Americans > 60 (> 60); eGFR For Non-African Americans > 60 (> 60)
[2018-10-09] MEDS: Chlorhexidine Rinse 15 ML MOUTHWASH MM SCH ×2 (05:50→20:15)
[2018-10-09] MEDS ORDERED: Dextrose 50 % in Water (Vial) 30 ML, Sodium Bicarbonate 20 MEQ, Potassium Chloride 15 M... TH ONE (06:00)
[2018-10-09] MEDS ORDERED: Aspirin 81 MG TAB.CHEW PO ONE (06:00)
[2018-10-09] MEDS ORDERED: Dextrose 50 % in Water (Vial) 30 ML, Sodium Bicarbonate 20 MEQ, Lidocaine 1% 5 ML, Insu... TH ONE ×3 (06:00)
[2018-10-09] MEDS ORDERED: Heparin 15,000 UNIT in 0.9 % Sodium Chloride 500 ML IV ONE (06:00)
[2018-10-09] MEDS ORDERED: Insulin Human Regular 100 UNIT in 0.9 % Sodium Chloride 100 ML IV PRN (06:00)
[2018-10-09] MEDS ORDERED: Norepinephrine 4 MG in D5% in Water 250 ML IVC PRN (06:00)
[2018-10-09] MEDS ORDERED: Nitroglycerin 25 MG/250 ML INFUS..BTL IVC ONE (07:46)
[2018-10-09] MEDS ORDERED: *HR* Midazolam HCl 5 MG/5 ML VIAL IVP ONE (07:48)
[2018-10-09] MEDS ORDERED: *HR* FentaNYL (PF) 1,000 MCG/20 ML VIAL ONE (07:49)
[2018-10-09] MEDS ORDERED: *HR* Propofol 200 MG/20 ML VIAL IVP ONE (07:49)
[2018-10-09] MEDS ORDERED: *HR* Rocuronium Bromide 50 MG/5 ML VIAL ONE ×2 (07:52→10:19)
[2018-10-09] MEDS ORDERED: Lidocaine 2% Syringe 100 MG/5 ML ONE (07:53)
[2018-10-09] MEDS ORDERED: Dexamethasone 4 MG/ML VIAL ONE (07:53)
[2018-10-09] MEDS ORDERED: Famotidine 20 MG/2 ML VIAL ONE (07:53)
[2018-10-09] MEDS ORDERED: *HR* Magnesium Sulfate 1 GM/2 ML VIAL ONE (07:53)
[2018-10-09] MEDS ORDERED: Verapamil 5 MG/2 ML VIAL ONE (07:57)
[2018-10-09] MEDS ORDERED: Tranexamic Acid 1,000 MG/10 ML VIAL ONE (07:59)
[2018-10-09] MEDS ORDERED: *HR* PHENYLEPHRINE 1,000 MCG/10 ML SYRINGE IVP ONE (07:59)
[2018-10-09 08:43] LABS: ABG Base Excess -1 mEq/L (-2 to 3); ABG Chloride 106 mEq/L (98-107); ABG Glucose 111 mg/dL (60-95); ABG HCO3 24 mEq/L (21-27); ABG Ionized Calcium 1.16 mmol/L (1.15-1.35); ABG Oxygen Saturation 99 % (95-98); ABG PCO2 43 mmHg (35-45); ABG PH 7.37 pH Units (7.32-7.45); ABG PO2 142 mmHg (85-104); ABG TCO2 26 mEq/L (20-26)
[2018-10-09] MEDS ORDERED: ceFAZolin 2,000 MG in Water for inj. (sterile) 20 ML IVP ONE (09:33)
[2018-10-09 10:09] LABS: ABG Base Excess -3 mEq/L (-2 to 3); ABG Chloride 108 mEq/L (98-107); ABG Glucose 124 mg/dL (60-95); ABG HCO3 22 mEq/L (21-27); ABG Ionized Calcium 1.16 mmol/L (1.15-1.35); ABG Oxygen Saturation 100 % (95-98); ABG PCO2 38 mmHg (35-45); ABG PH 7.38 pH Units (7.32-7.45); ABG PO2 270 mmHg (85-104); ABG TCO2 23 mEq/L (20-26)
[2018-10-09 10:43] LABS: ABG Base Excess 3 mEq/L (-2 to 3); ABG Chloride 99 mEq/L (98-107); ABG Glucose 231 mg/dL (60-95); ABG HCO3 26 mEq/L (21-27); ABG Oxygen Saturation 100 % (95-98); ABG PCO2 34 mmHg (35-45); ABG PH 7.49 pH Units (7.32-7.45); ABG PO2 514 mmHg (85-104); ABG TCO2 27 mEq/L (20-26)
--- NOTE | 2018-10-09 10:44 | Anesthesia Procedures ---
Date of Encounter: 10/09/18 Time of Encounter: 10:43 Procedures: Anesthesia - Arterial Line Consent obtained: written consent Time out performed: Yes Sedation: Versed (mg): 2 Sedation: Fentanyl (mcg): 100 Local Anesthetic: Lidocaine 1% Size (Gauge): 20 Technique Used: sterile prep, direct puncture technique Post-Procedure: line taped into place, dry sterile dressing placed Patient tolerated procedure: well, no complications Site: Radial L Vitals: see anesthesia record - Central Line Placement Right IJ Consent obtained: written consent Time out performed: Yes Patient placed on monitor/pulse ox: Yes prep: mask, gown, gloves Central line prep: Chlorhexidine scrub Local Anesthetic Used: Other (general anesthesia ) Ultrasound used for placement: Yes Technique: Seldinger Lumen Inserted: single Size / Length: 9 Fr / 10 cm Post procedure: sutured in place, good blood return, all ports aspirated, flushed, capped, sterile dressing applied Patient tolerated procedure: well, no complications Complications: none Vitals: see anesthesia record Comments: PAC inserted using pressure waveform analysis and secured at 42 cm
[2018-10-09] MEDS ORDERED: Tranexamic Acid 1,000 MG/10 ML VIAL IVPB ONE (10:54)
[2018-10-09] MEDS ORDERED: Lidocaine 2% Syringe 100 MG/5 ML IV ONE (10:54)
[2018-10-09] MEDS ORDERED: Albumin Human 25% 25 GM/100 ML IV.SOLN IV ONE (10:54)
[2018-10-09] MEDS ORDERED: *HR* Magnesium Sulfate 2 GM/50 ML PIGGYBACK IVPB ONE (10:54)
[2018-10-09] MEDS ORDERED: *HR* Phenylephrine 10 MG/ML VIAL IVC ONE (10:54)
[2018-10-09] MEDS ORDERED: *HR* Heparin 10,000 UNIT/10 ML VIAL IV ONE (10:54)
[2018-10-09] MEDS ORDERED: Mannitol 25% vial 12.5 GM/50 ML VIAL IVP ONE (10:54)
[2018-10-09 11:23] LABS: ABG Base Excess 3 mEq/L (-2 to 3); ABG Chloride 100 mEq/L (98-107); ABG Glucose 249 mg/dL (60-95); ABG HCO3 27 mEq/L (21-27); ABG Ionized Calcium 0.87 mmol/L (1.15-1.35); ABG Oxygen Saturation 100 % (95-98); ABG PCO2 39 mmHg (35-45); ABG PH 7.44 pH Units (7.32-7.45); ABG PO2 491 mmHg (85-104); ABG TCO2 28 mEq/L (20-26)
[2018-10-09 11:28] LABS: ABG Base Excess 3 mEq/L (-2 to 3); ABG Chloride 98 mEq/L (98-107); ABG Glucose 185 mg/dL (60-95); ABG HCO3 28 mEq/L (21-27); ABG Ionized Calcium 0.95 mmol/L (1.15-1.35); ABG Oxygen Saturation 100 % (95-98); ABG PCO2 44 mmHg (35-45); ABG PO2 469 mmHg (85-104); ABG TCO2 29 mEq/L (20-26)
[2018-10-09] MEDS ORDERED: Protamine Sulfate 250 MG/25 ML VIAL IVP ONE (11:29)
[2018-10-09] MEDS ORDERED: Albumin Human 5% 50.0 GM/1,000 ML VIAL ONE (11:39)
[2018-10-09] MEDS: Aspirin 81 MG TAB.CHEW PO SCH (11:53)
[2018-10-09 12:05] LABS: ABG Base Excess -1 mEq/L (-2 to 3); ABG Chloride 104 mEq/L (98-107); ABG Glucose 116 mg/dL (60-95); ABG HCO3 23 mEq/L (21-27); ABG Ionized Calcium 1.48 mmol/L (1.15-1.35); ABG Oxygen Saturation 100 % (95-98); ABG PCO2 36 mmHg (35-45); ABG PH 7.42 pH Units (7.32-7.45); ABG PO2 218 mmHg (85-104); ABG TCO2 25 mEq/L (20-26)
[2018-10-09 12:21] LABS: ABG Base Excess 1 mEq/L (-2 to 3); ABG Chloride 105 mEq/L (98-107); ABG Glucose 109 mg/dL (60-95); ABG HCO3 25 mEq/L (21-27); ABG Ionized Calcium 1.44 mmol/L (1.15-1.35); ABG Oxygen Saturation 100 % (95-98); ABG PCO2 36 mmHg (35-45); ABG PH 7.44 pH Units (7.32-7.45); ABG PO2 170 mmHg (85-104); ABG TCO2 26 mEq/L (20-26)
[2018-10-09] MEDS ORDERED: Insulin Regular, Human 100 UNIT/ML IV PRN (12:38)
[2018-10-09] MEDS ORDERED: Potassium Chloride 40 MEQ/200 ML BAG IVPB PRN (12:38)
[2018-10-09] MEDS ORDERED: *HR* Dextrose 50 % in Water (Syg) 50 ML SYRINGE IVP PRN (12:38)
[2018-10-09] MEDS: Nitroglycerin 25 MG/250 ML INFUS..BTL IVC SCH (12:40)
[2018-10-09] MEDS ORDERED: niCARdipine 20 MG/200 ML MLS IVC ONE (12:55)
[2018-10-09 12:56] LABS: ABG Base Excess 2 mEq/L (-2 to 3); ABG HCO3 26 mEq/L (21-27); ABG Oxygen Saturation 98 % (95-98); ABG PCO2 34 mmHg (35-45); ABG PH 7.48 pH Units (7.32-7.45); ABG PO2 94 mmHg (85-104); ABG TCO2 27 mEq/L (20-26); Blood Gas PEEP 5 cm H2O; Blood Gas VT 600 cc
[2018-10-09 13:02] LABS: Basophils % 0.2 %; Eosinophils # 0.1 K/mcL (0.0-0.6); Eosinophils % 0.4 %; Hematocrit 27.2 % (35.3-44.9); Immature Granulocytes % 0.6 % (0-4); Lymphocytes # 2.2 K/mcL (0.6-4.6); Lymphocytes % 15.4 %; Mean Corpuscular HGB Conc 33.8 g/dL (31.6-35.5); Mean Corpuscular Hemoglobin 29.5 pg (28.0-33.3); Mean Corpuscular Volume 87.2 fL (83.0-100.0); Mean Platelet Volume 9.3 fL (9.4-12.4); Monocytes # 0.8 K/mcL (0.0-1.3); Monocytes % 5.6 %; Neutrophils # 11.1 K/mcL (1.6-8.9); Platelet Count 102 K/mcL (140-400); Red Blood Count 3.12 M/mcL (3.82-4.97); Red Cell Distribution Width 12.3 % (11.5-14.5); Segmented Neutrophils % 77.8 %
[2018-10-09] MEDS: niCARdipine 20 MG/200 ML MLS IVC SCH ×2 (13:05→20:34)
[2018-10-09 13:06] LABS: Hemoglobin 9.2 g/dL (11.5-15.4)
[2018-10-09 13:13] LABS: White Blood Count 14.3 K/mcL (4.3-11.1)
[2018-10-09 13:14] LABS: INR 1.4
[2018-10-09] MEDS: *HR* FentaNYL (PF) 100 MCG/2 ML VIAL IVP PRN ×3 (13:15→19:41)
[2018-10-09 13:17] LABS: Activated Partial Thrombo Time 27.1 Seconds (26.0-36.0)
[2018-10-09 13:22] LABS: Prothrombin Time 15.4 Seconds (9.4-12.1)
--- NOTE | 2018-10-09 13:23 | Operative Note ---
Date of procedure: 10/09/18 Pre-op diagnosis: Coronary artery disease Post-op diagnosis: same Procedure: Coronary artery bypass grafting 3 with the left internal mammary artery to the LAD and saphenous vein grafts to the posterior descending branch of the right coronary artery and obtuse marginal branch #2 of the circumflex coronary artery. Anesthesia: GETA Surgeon: Carlos Ruiz Was there an bankruptcy assistant present: Yes Hog Ringer: Jack Fu Estimated blood loss (cc): 500 Specimen: none Condition: critical Disposition: ICU Procedure in Detail: The patient is a 68-year-old female who presented with coronary artery disease and was referred for surgery. She was brought to the operating room where she was prepped and draped in standard fashion. An incision was made in the right leg, but the vein was not suitable. The left greater saphenous vein was harvested from the ankle to the groin using 2 small incisions and a scope. These incisions were subsequently closed with a deep layer of 2-0 Vicryl and a 3-0 Vicryl subcuticular stitch. Standard median sternotomy was performed. The left internal mammary artery was harvested in standard fashion using the Bovie electrocoagulation. Standard sternal credit rating checker was inserted. Pericardium was opened in the midline and suspended with 2-0 silk stay sutures. A double pursestring of 20 Surgilon was placed in the aorta for the aortic cannulation site. A pursestring of 20 Surgilon was placed in the right atrial appendage for the venous uptake. The patient was heparinized. The aorta was cannulated without difficulty. 2 stage venous uptake cannula was inserted through the right atrial appendage. A pursestring of 30 Surgilon was placed in the aorta and the cardioplegia needle was inserted through here. This was also used is an active and passive aortic vent. The patient was placed on cardiopulmonary bypass and cooled to 33.5 degrees. At this point, the aorta was crossclamped and a liter of antegrade cardioplegia was given. Topical cooling with iced saline slush was also used. Attention was first turned to the right coronary artery. The posterior descending branch was dissected free with the Apache blade and opened with a Apache blade and the Lorenzo scissors. This had a lumen of 1 mm and was relatively free of disease. A standard end-to-side anastomosis was constructed using the saphenous vein and a 7-0 Prolene. When this is completed, the patient received an additional dose of antegrade cardioplegia. Attention was turned to the circumflex. Obtuse marginal branch #1 was too small and diffusely diseased for grafting. Obtuse marginal branch #2 was dissected free with the Apache blade and opened with the Apache blade and the Lorenzo scissors. This had a lumen of 1-1/2 mm and was relatively free of disease. A standard end-to-side anastomosis was constructed using the saphenous vein and a 7-0 Prolene. When this is completed, the patient received her last dose of antegrade cardioplegia. The LAD was dissected free distally with the Apache blade and opened with the Apache blade and the Lorenzo scissors. This had a lumen of 1 mm and did have moderate diffuse disease with disease with disease out to the tip. A standard end-to-side anastomosis was constructed using the mammary artery and a 7-0 Prolene. When this was completed, the bulldog clamp was removed and the hemostasis was good. Pedicle was tacked to the surface a heart using 2 interrupted 5-0 silk sutures. Cross-clamp was removed and rewarming was begun. Total cross-clamp time was 46 minutes. A side-biting clamp was placed on the aorta and the cardioplegia needle was removed. 2 holes were made in the aorta using the Apache blade and the 4.0 mm aortic punch. 2 proximal anastomoses were constructed in standard fashion using the saphenous veins and 5-0 Prolene's. When this is completed, the side-biting clamp was removed. Grafts were de-aired is #25-gauge needle and the previously placed bulldog clamps removed. Distal anastomoses were inspected and found to be hemostatic. Proximal anastomoses were marked with a marker from [employer] sponge. A pair of ventricular pacing wires was left. A total of 3 chest tubes were left. A 32 angle chest tube to the left pleural space. A 32 right angle chest tube to the pericardial well. A 42 mediastinal chest tube. The patient was weaned from bypass and decannulated. Protamine was given. Hemostasis was good and the hemodynamics were good. Pericardium was loosely closed with interrupted 2-0 silk sutures. Sternum was closed with #7 sternal wires in simple and [id number] fashion. We did use platelet rich and platelet poor plasma to the sternum and tissues above the sternum. Fascia was closed using a running 0 Vicryl. Subcutaneous tissues with a 2-0 Vicryl. Skin was closed with a 3-0 Vicryl subcuticular stitch. The patient tolerated the procedure well and was returned intensive care unit in satisfactory and stable condition. Total cross- clamp time 46 minutes. Total bypass time 83 minutes. She been cooled to 35.5 degrees.
[2018-10-09 13:31] LABS: BUN/Creatinine Ratio 21 (6-26); Blood Urea Nitrogen 16 mg/dL (8-23); Calcium 9.5 mg/dL (8.6-10.3); Carbon Dioxide 26 mEq/L (23-29); Chloride 108 mEq/L (98-107); Glucose 76 mg/dL (70-105); Magnesium 3.7 mg/dL (1.6-2.6); Osmolality,Calculated 290 (280-300); Potassium 3.7 mEq/L (3.5-5.1); Sodium 140 mEq/L (136-145); eGFR For African Americans > 60 (> 60); eGFR For Non-African Americans > 60 (> 60)
[2018-10-09] MEDS: 0.9 % Sodium Chloride 1,000 ML IVC SCH (13:35)
[2018-10-09] MEDS: Insulin Human Regular 100 UNIT in 0.9 % Sodium Chloride 100 ML IVC SCH (14:12)
[2018-10-09 15:03] LABS: ABG Base Excess -1 mEq/L (-2 to 3); ABG HCO3 24 mEq/L (21-27); ABG Oxygen Saturation 97 % (95-98); ABG PCO2 42 mmHg (35-45); ABG PH 7.38 pH Units (7.32-7.45); ABG PO2 89 mmHg (85-104); ABG TCO2 26 mEq/L (20-26); Blood Gas Modality CPAP/PS; Blood Gas PEEP 5 cm H2O; Blood Gas Pressure Support 5 cm H2O
[2018-10-09] MEDS: *HR* OxyCODONE/APAP 5/325 TABLET PO PRN ×2 (15:46→20:46)
[2018-10-09 15:57] LABS: ABG Base Excess -2 mEq/L (-2 to 3); ABG HCO3 24 mEq/L (21-27); ABG Oxygen Saturation 96 % (95-98); ABG PCO2 43 mmHg (35-45); ABG PH 7.36 pH Units (7.32-7.45); ABG PO2 82 mmHg (85-104); ABG TCO2 25 mEq/L (20-26)
--- NOTE | 2018-10-09 16:51 | Electrocardiograph Report ---
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
[2018-10-09] MEDS: *HR* HYDROcodone/Acet 5/325 mg TABLET PO PRN (18:45)
[2018-10-09] MEDS ORDERED: Amiodarone Premix 360 MG/200 ML BAG IVC ONE (18:56)
[2018-10-09] MEDS ORDERED: Amiodarone Premix 150 MG/100 ML BAG IVPB ONE (18:56)
[2018-10-09] MEDS ORDERED: Amiodarone Premix 360 MG/200 ML BAG IVC SCH (19:00)
[2018-10-09] MEDS: Norepinephrine 4 MG in D5% in Water 250 ML IVC SCH (19:20)
[2018-10-09] MEDS: Heparin 25,000 UNIT/250 ML D5W 25,000 UNIT/250 ML IV.SOLN IVC SCH (19:21)
[2018-10-09] MEDS: Ondansetron 4 MG/2 ML VIAL IVP PRN (19:47)
[2018-10-10] MEDS: *HR* FentaNYL (PF) 100 MCG/2 ML VIAL IVP PRN ×3 (00:20→08:27)
[2018-10-10] MEDS: Nitroglycerin 25 MG/250 ML INFUS..BTL IVC SCH ×3 (00:20→23:27)
[2018-10-10] MEDS: niCARdipine 20 MG/200 ML MLS IVC SCH ×7 (02:52→15:18)
[2018-10-10] MEDS: 0.9 % Sodium Chloride 1,000 ML IVC SCH (04:18)
[2018-10-10] MEDS: *HR* OxyCODONE/APAP 5/325 TABLET PO PRN (04:18)
[2018-10-10 04:24] LABS: ABG Base Excess -3 mEq/L (-2 to 3); ABG HCO3 22 mEq/L (21-27); ABG Oxygen Saturation 91 % (95-98); ABG PCO2 37 mmHg (35-45); ABG PH 7.38 pH Units (7.32-7.45); ABG PO2 60 mmHg (85-104); ABG TCO2 23 mEq/L (20-26)
[2018-10-10] MEDS: Ondansetron 4 MG/2 ML VIAL IVP PRN (05:36)
[2018-10-10 05:57] LABS: Hematocrit 23.9 % (35.3-44.9); Immature Granulocytes % 0.6 % (0-4); Lymphocytes # 2.2 K/mcL (0.6-4.6); Lymphocytes % 10.8 %; Mean Corpuscular HGB Conc 33.5 g/dL (31.6-35.5); Mean Corpuscular Hemoglobin 29.7 pg (28.0-33.3); Mean Corpuscular Volume 88.8 fL (83.0-100.0); Mean Platelet Volume 10.1 fL (9.4-12.4); Monocytes # 1.7 K/mcL (0.0-1.3); Monocytes % 8.6 %; Neutrophils # 16.2 K/mcL (1.6-8.9); Platelet Count 139 K/mcL (140-400); Red Blood Count 2.69 M/mcL (3.82-4.97); Red Cell Distribution Width 12.7 % (11.5-14.5); White Blood Count 20.3 K/mcL (4.3-11.1)
[2018-10-10 06:19] LABS: BUN/Creatinine Ratio 23 (6-26); Blood Urea Nitrogen 19 mg/dL (8-23); Calcium 8.6 mg/dL (8.6-10.3); Carbon Dioxide 21 mEq/L (23-29); Chloride 107 mEq/L (98-107); Glucose 129 mg/dL (70-105); Osmolality,Calculated 290 (280-300); Potassium 4.1 mEq/L (3.5-5.1); Sodium 138 mEq/L (136-145); eGFR For African Americans > 60 (> 60); eGFR For Non-African Americans > 60 (> 60)
--- NOTE | 2018-10-10 07:21 | Anesthesia Evaluation Post Op ---
Date of Encounter: 10/10/18 Time of Encounter: 07:20 - Vital Signs Vital Signs: Vital Signs/O2 Sat/Glucose, Most Recent Temp Pulse Resp BP Pulse Ox 97.6 F 71 16 121/46 100 10/10/18 07:00 10/10/18 07:00 10/10/18 07:00 10/10/18 07:00 10/10/18 07:00 Blood Glucose* 102 - Lungs Lungs: Clear Ascult./Percussion - Airway Airway: Non-obstructed - Cardiovascular Treatment Ordered (amiodarone for bigeminy/trigeminy) - Mental Status Mental Status: Alert & Oriented, Answers Appropriately - Pain Pain Scale: 3 - Nausea Vomiting Nausea Vomiting: Not Present - Hydration Hydration: Tolerates oral liquids - Discharge Attestation: patient remains in ICU for post op management CABG
--- NOTE | 2018-10-10 07:35 | Cardiothoracic Progress Note ---
Date of Encounter: 10/10/18 Time of Encounter: 07:33 - Assessment and plan (1) Chest pain Current Visit: Yes Status: Acute We will discontinue the IV fluids, Proctor-Juan Carlos catheter, Becker catheter and arterial line. We will order when necessary BiPAP. We will start her preop Lopressor dosage. We will leave her in the ICU for now. We will stop the amiodarone drip and use beta josh to prevent A. fib. Qualifiers: Chest pain type: chest pain due to myocardial ischemia Ischemic chest pain type: unstable angina pectoris Qualified Code(s): I20.0 - Unstable angina - Subjective Interval history: The patient is extubated and sitting in a chair. She has mild postoperative pain. Vital Signs, Last 4 Hours Temp Pulse Resp BP Pulse Ox 10/10/18 07:00 97.6 F 71 16 121/46 100 10/10/18 06:00 97.5 F L 68 20 112/48 97 10/10/18 05:00 97.7 F 65 17 122/52 93 10/10/18 04:00 97.7 F 66 12 114/50 92 10/10/18 03:41 14 91 Oxgyen Flow Rate Oxygen Flow Rate (LPM) 7 Clinical Data, last 8 Hours Output, Chest Tube Drainage 0 Amount [mediastinal 3] Output, Chest Tube Drainage 0 Amount [mediastinal 3] Output, Chest Tube Drainage 10 Amount [mediastinal 3] Output, Chest Tube Drainage 15 Amount [mediastinal 3] Output, Chest Tube Drainage 15 Amount [mediastinal 3] Output, Chest Tube Drainage 5 Amount [mediastinal 3] Output, Chest Tube Drainage 0 Amount [mediastinal 3] Output, Chest Tube Drainage 5 Amount [mediastinal 3] Output, Chest Tube Drainage 0 Amount [mediastinal 2] Output, Chest Tube Drainage 10 Amount [mediastinal 2] Output, Chest Tube Drainage 10 Amount [mediastinal 2] Output, Chest Tube Drainage 10 Amount [mediastinal 2] Output, Chest Tube Drainage 5 Amount [mediastinal 2] Output, Chest Tube Drainage 10 Amount [mediastinal 2] Output, Chest Tube Drainage 0 Amount [mediastinal 2] Output, Chest Tube Drainage 0 Amount [mediastinal 2] Output, Chest Tube Drainage 0 Amount [mediastinal 1] Output, Chest Tube Drainage 15 Amount [mediastinal 1] Output, Chest Tube Drainage 20 Amount [mediastinal 1] Output, Chest Tube Drainage 5 Amount [mediastinal 1] Output, Chest Tube Drainage 0 Amount [mediastinal 1] Output, Chest Tube Drainage 0 Amount [mediastinal 1] Output, Chest Tube Drainage 0 Amount [mediastinal 1] Output, Chest Tube Drainage 10 Amount [mediastinal 1] Weight 10/08/18 10/09/18 10/10/18 23:59 23:59 23:59 Weight 71.6 kg 72.5 kg Lungs are clear to percussion and auscultation. Heart is in a normal sinus rhythm with occasional PVCs. All incisions are healing well without signs of infection and the sternum is stable. Chest x-ray is stable. Chest tube drainage is minimal and there is no air leak. - Labs 10/10/18 05:44 10/10/18 05:44 Lab Results, Last 24 hours 10/09/18 10/09/18 10/09/18 12:50 12:50 12:50 WBC 14.3 H D Hgb 9.2 L D Hct 27.2 L Plt Count 102 L D INR 1.4 APTT 27.1 Sodium 140 Potassium 3.7 Chloride 108 H Carbon Dioxide 26 BUN 16 Creatinine 0.76 Glucose 76 Calcium 9.5 Magnesium 3.7 H 10/09/18 10/09/18 10/09/18 15:50 15:50 21:24 WBC Hgb 10.0 L Hct 30.0 L Plt Count INR APTT Sodium Potassium 3.0 L 4.1 D Chloride Carbon Dioxide BUN Creatinine Glucose Calcium Magnesium 10/10/18 10/10/18 05:44 05:44 WBC 20.3 H Hgb 8.0 L D Hct 23.9 L Plt Count 139 L INR APTT Sodium 138 Potassium 4.1 Chloride 107 Carbon Dioxide 21 L BUN 19 Creatinine 0.84 Glucose 129 H Calcium 8.6 Magnesium - VTE Documentation of Mechanical Device: Graduated compression elastic hosiery Consult Discharge Plan - Plan Referrals: Zandra Klein, TRAFFIC MAINTENANCE SUPERVISOR [Primary Care Provider] -
[2018-10-10] MEDS ORDERED: Furosemide 20 MG/2 ML VIAL IVP ONE (07:40)
[2018-10-10] MEDS ORDERED: *HR* Promethazine 25 MG/ML VIAL IVP PRN (08:01)
[2018-10-10] MEDS ORDERED: *HR* Promethazine 25 MG/ML VIAL ONE (08:03)
[2018-10-10] MEDS: Chlorhexidine Rinse 15 ML MOUTHWASH MM SCH ×2 (08:20→19:56)
[2018-10-10] MEDS: Pantoprazole 40 MG VIAL IVP SCH (08:20)
[2018-10-10] MEDS: Aspirin 81 MG TAB.CHEW PO SCH (08:21)
[2018-10-10] MEDS: Insulin Human Regular 100 UNIT in 0.9 % Sodium Chloride 100 ML IVC SCH (10:21)
[2018-10-10] MEDS: Norepinephrine 4 MG in D5% in Water 250 ML IVC SCH (11:57)
[2018-10-10] MEDS: *HR* HYDROcodone/Acet 5/325 mg TABLET PO PRN (14:01)
[2018-10-10] MEDS ORDERED: Aluminum Hydroxide 15 ML UDC PO PRN (17:37)
[2018-10-10] MEDS: Insulin LISPRO 300 UNITS/3 ML VIAL SQ SCH (18:28)
[2018-10-10] MEDS ORDERED: Mag Hydrox/Al Hydrox/Simeth 30 ML UDC PO PRN (19:00)
[2018-10-10] MEDS ORDERED: Insulin LISPRO 300 UNITS/3 ML VIAL SQ SCH (21:00)
[2018-10-11] MEDS: niCARdipine 20 MG/200 ML MLS IVC SCH ×3 (04:05→10:07)
[2018-10-11 04:13] LABS: Basophils % 0.1 %; Hemoglobin 8.1 g/dL (11.5-15.4); Immature Granulocytes % 0.5 % (0-4); Lymphocytes # 2.7 K/mcL (0.6-4.6); Lymphocytes % 15.1 %; Mean Corpuscular HGB Conc 32.4 g/dL (31.6-35.5); Mean Corpuscular Hemoglobin 30.1 pg (28.0-33.3); Mean Corpuscular Volume 92.9 fL (83.0-100.0); Mean Platelet Volume 10.3 fL (9.4-12.4); Monocytes # 1.3 K/mcL (0.0-1.3); Monocytes % 7.5 %; Neutrophils # 13.5 K/mcL (1.6-8.9); Platelet Count 124 K/mcL (140-400); Red Blood Count 2.69 M/mcL (3.82-4.97); Red Cell Distribution Width 13.5 % (11.5-14.5); Segmented Neutrophils % 76.8 %; White Blood Count 17.6 K/mcL (4.3-11.1)
[2018-10-11 04:32] LABS: Calcium 8.6 mg/dL (8.6-10.3); Potassium 4.3 mEq/L (3.5-5.1)
--- NOTE | 2018-10-11 08:13 | Cardiothoracic Progress Note ---
Date of Encounter: 10/11/18 Time of Encounter: 08:10 - Assessment and plan (1) Chest pain Current Visit: Yes Status: Acute We will check a stat portable chest x-ray. We will increase her Lopressor dosage and discontinue the Zestril. We will transfer the patient to the floor. Qualifiers: Chest pain type: chest pain due to myocardial ischemia Ischemic chest pain type: unstable angina pectoris Qualified Code(s): I20.0 - Unstable angina - Subjective Interval history: The patient has no complaints and has only minimal postoperative pain. Vital Signs, Last 4 Hours Temp Pulse Resp BP Pulse Ox 10/11/18 07:51 14 93 10/11/18 07:25 98.5 F 10/11/18 06:00 85 14 109/54 96 10/11/18 05:00 86 18 95 Oxgyen Flow Rate Oxygen Flow Rate (LPM) 4 Clinical Data, last 8 Hours Output, Chest Tube Drainage 10 Amount [mediastinal 3] Output, Chest Tube Drainage 40 Amount [mediastinal 3] Output, Chest Tube Drainage 0 Amount [mediastinal 2] Output, Chest Tube Drainage 10 Amount [mediastinal 2] Output, Chest Tube Drainage 10 Amount [mediastinal 1] Output, Chest Tube Drainage 10 Amount [mediastinal 1] Output, Urine Amount 200 Output, Urine Amount 400 Output, Urine Amount 0 Weight 10/09/18 10/10/18 10/11/18 23:59 23:59 23:59 Weight 72.5 kg 77.1 kg Lungs are clear to percussion and auscultation. Heart is in a normal sinus rhythm with occasional PVC. All incisions are healing well without signs of infection and the sternum is stable. Chest tube drainage is minimal and there is no air leak. The chest tubes and pacing wires were removed. - Labs 10/11/18 03:59 10/11/18 03:59 Lab Results, Last 24 hours 10/11/18 10/11/18 03:59 03:59 WBC 17.6 H Hgb 8.1 L Hct 25.0 L Plt Count 124 L Sodium 137 Potassium 4.3 Chloride 107 Carbon Dioxide 25 BUN 25 H Creatinine 1.13 Glucose 116 H Calcium 8.6 - VTE Documentation of Mechanical Device: Graduated compression elastic hosiery Consult Discharge Plan - Plan Referrals: Zandra Klein, DRIVER TRAINER [Primary Care Provider] -
[2018-10-11] MEDS: Chlorhexidine Rinse 15 ML MOUTHWASH MM SCH ×2 (09:35→21:18)
[2018-10-11] MEDS: Pantoprazole 40 MG VIAL IVP SCH (09:35)
[2018-10-11] MEDS: *HR* HYDROcodone/Acet 5/325 mg TABLET PO PRN (09:36)
[2018-10-11] MEDS: Aspirin 81 MG TAB.CHEW PO SCH (09:36)
[2018-10-11] MEDS: Insulin LISPRO 300 UNITS/3 ML VIAL SQ SCH ×4 (09:38→21:14)
[2018-10-11] MEDS: Nitroglycerin 25 MG/250 ML INFUS..BTL IVC SCH (10:08)
[2018-10-11] MEDS ORDERED: *HR* Dextrose 50 % in Water (Syg) 50 ML SYRINGE IVP PRN (10:11)
[2018-10-11] MEDS ORDERED: Acetaminophen 325 MG TABLET PO PRN (10:11)
[2018-10-11] MEDS ORDERED: *HR* Promethazine 25 MG/ML VIAL IVP PRN (10:11)
[2018-10-11] MEDS ORDERED: Naloxone 0.4 MG/ML INJ IVP PRN (10:11)
[2018-10-11] MEDS ORDERED: Mag Hydrox/Al Hydrox/Simeth 30 ML UDC PO PRN (10:11)
[2018-10-11] MEDS: *HR* OxyCODONE/APAP 5/325 TABLET PO PRN ×2 (16:35→21:18)
[2018-10-11] MEDS: *HR* Heparin 5,000 UNIT/ML VIAL SQ SCH (18:45)
[2018-10-12] MEDS: *HR* OxyCODONE/APAP 5/325 TABLET PO PRN (03:35)
[2018-10-12] MEDS: *HR* Heparin 5,000 UNIT/ML VIAL SQ SCH ×2 (05:42→17:30)
[2018-10-12 06:32] LABS: Basophils % 0.1 %; Eosinophils # 0.1 K/mcL (0.0-0.6); Eosinophils % 0.5 %; Hematocrit 25.4 % (35.3-44.9); Hemoglobin 7.9 g/dL (11.5-15.4); Immature Granulocytes % 0.5 % (0-4); Lymphocytes # 2.4 K/mcL (0.6-4.6); Lymphocytes % 18.6 %; Mean Corpuscular HGB Conc 31.1 g/dL (31.6-35.5); Mean Corpuscular Hemoglobin 29.2 pg (28.0-33.3); Mean Corpuscular Volume 93.7 fL (83.0-100.0); Mean Platelet Volume 10.4 fL (9.4-12.4); Monocytes # 0.8 K/mcL (0.0-1.3); Monocytes % 6.4 %; Neutrophils # 9.5 K/mcL (1.6-8.9); Platelet Count 152 K/mcL (140-400); Red Blood Count 2.71 M/mcL (3.82-4.97); Red Cell Distribution Width 13.6 % (11.5-14.5); Segmented Neutrophils % 73.9 %; White Blood Count 12.9 K/mcL (4.3-11.1)
[2018-10-12 06:33] LABS: BUN/Creatinine Ratio 25 (6-26); Blood Urea Nitrogen 20 mg/dL (8-23); Calcium 8.6 mg/dL (8.6-10.3); Carbon Dioxide 27 mEq/L (23-29); Chloride 104 mEq/L (98-107); Glucose 109 mg/dL (70-105); Osmolality,Calculated 293 (280-300); Potassium 3.9 mEq/L (3.5-5.1); Sodium 140 mEq/L (136-145); eGFR For African Americans > 60 (> 60); eGFR For Non-African Americans > 60 (> 60)
--- NOTE | 2018-10-12 07:36 | Cardiothoracic Progress Note ---
Date of Encounter: 10/12/18 Time of Encounter: 07:34 - Assessment and plan (1) Unstable angina Current Visit: Yes Status: Acute The assessment and plan as outlined above was discussed with the patient and/or family members who expressed understanding and agreement. All questions were answered. no changes in medications. will check iron stores given low hgb. - Subjective Interval history: no complaints Vital Signs, Last 4 Hours Temp Pulse Resp BP Pulse Ox 10/12/18 06:00 76 12 107/58 95 10/12/18 04:06 98.5 F 10/12/18 04:00 80 12 102/57 95 10/12/18 03:42 18 94 Oxgyen Flow Rate Oxygen Flow Rate (LPM) 2 Clinical Data, last 8 Hours Output, Urine Amount 300 Output, Urine Amount 150 Weight 10/10/18 10/11/18 10/12/18 23:59 23:59 23:59 Weight 77.1 kg 77.6 kg - Physical Examination General: Conversant, No Apparent Distress, Well developed, Well nourished HEENT: Atraumatic, Normocephaly Cardiac: Reg Rate and Rhythm, Normal S1 and S2 Incision: No signs of infection, Dry/intact dressing Lungs: Normal Breath Sounds Neuro: Alert and responsive, No focal deficits noted, Cranial nerves intact, Motor nerves intact Abdomen: Soft, Non-tender, Other (hypoactive bs. flatus. ) Musculoskeletal: Other (ambulated twice yesterday.) Extremities: No Edema, Normal Pulses - Labs 10/12/18 05:50 10/12/18 05:50 Lab Results, Last 24 hours 10/12/18 10/12/18 05:50 05:50 WBC 12.9 H Hgb 7.9 L Hct 25.4 L Plt Count 152 Sodium 140 Potassium 3.9 Chloride 104 Carbon Dioxide 27 BUN 20 Creatinine 0.81 Glucose 109 H Calcium 8.6 - Imaging Chest Xray: image reviewed - VTE Documentation of Mechanical Device: Graduated compression elastic hosiery Consult Discharge Plan - Plan Referrals: Zandra Klein, PIECE WORK CHECKER [Primary Care Provider] -
[2018-10-12] MEDS: Insulin LISPRO 300 UNITS/3 ML VIAL SQ SCH ×4 (07:45→20:57)
[2018-10-12 07:46] LABS: % Iron Saturation 5 % (15-50); Iron 12 mcg/dL (50-170); Transferrin 166 mg/dL (203-362)
[2018-10-12] MEDS: Chlorhexidine Rinse 15 ML MOUTHWASH MM SCH ×2 (07:54→20:55)
[2018-10-12] MEDS: Pantoprazole 40 MG VIAL IVP SCH (07:55)
[2018-10-12] MEDS: Aspirin 81 MG TAB.CHEW PO SCH (07:55)
[2018-10-12] MEDS: Ondansetron 4 MG/2 ML VIAL IVP PRN (15:04)
[2018-10-13 02:00] LABS: Basophils % 0.2 %; Eosinophils # 0.1 K/mcL (0.0-0.6); Eosinophils % 1.2 %; Hematocrit 26.3 % (35.3-44.9); Hemoglobin 8.4 g/dL (11.5-15.4); Immature Granulocytes % 0.6 % (0-4); Lymphocytes # 2.9 K/mcL (0.6-4.6); Lymphocytes % 25.5 %; Mean Corpuscular HGB Conc 31.9 g/dL (31.6-35.5); Mean Corpuscular Hemoglobin 29.4 pg (28.0-33.3); Mean Platelet Volume 10.1 fL (9.4-12.4); Monocytes # 0.7 K/mcL (0.0-1.3); Monocytes % 6.2 %; Neutrophils # 7.6 K/mcL (1.6-8.9); Platelet Count 202 K/mcL (140-400); Red Blood Count 2.86 M/mcL (3.82-4.97); Red Cell Distribution Width 13.3 % (11.5-14.5); Segmented Neutrophils % 66.3 %; White Blood Count 11.5 K/mcL (4.3-11.1)
[2018-10-13 02:19] LABS: BUN/Creatinine Ratio 24 (6-26); Blood Urea Nitrogen 18 mg/dL (8-23); Calcium 8.7 mg/dL (8.6-10.3); Carbon Dioxide 25 mEq/L (23-29); Chloride 107 mEq/L (98-107); Glucose 98 mg/dL (70-105); Osmolality,Calculated 292 (280-300); Potassium 4.2 mEq/L (3.5-5.1); Sodium 140 mEq/L (136-145); eGFR For African Americans > 60 (> 60); eGFR For Non-African Americans > 60 (> 60)
[2018-10-13] MEDS: *HR* Heparin 5,000 UNIT/ML VIAL SQ SCH ×2 (04:57→17:56)
[2018-10-13] MEDS: Aspirin 81 MG TAB.CHEW PO SCH (08:33)
[2018-10-13] MEDS: Chlorhexidine Rinse 15 ML MOUTHWASH MM SCH ×2 (08:34→21:23)
[2018-10-13] MEDS: Pantoprazole 40 MG VIAL IVP SCH (08:34)
[2018-10-13] MEDS: Insulin LISPRO 300 UNITS/3 ML VIAL SQ SCH (08:34)
[2018-10-13] MEDS ORDERED: Iron Sucrose Complex 400 MG in 0.9 % Sodium Chloride 250 ML IVPB ONE (09:37)
[2018-10-13] MEDS ORDERED: Metoprolol XL (24 HR) Succ 25 MG TAB.ER.24H PO ONE (09:44)
[2018-10-13] MEDS ORDERED: MOM Conc 10 ML UD.LIQ PO PRN (09:44)
--- NOTE | 2018-10-13 09:47 | Cardiothoracic Progress Note ---
Date of Encounter: 10/13/18 Time of Encounter: 09:45 - Assessment and plan (1) Unstable angina Current Visit: Yes Status: Acute The assessment and plan as outlined above was discussed with the patient and/or family members who expressed understanding and agreement. All questions were answered. will increase beta josh. check mg level. . (2) Iron deficiency anemia Current Visit: Yes Status: Acute The assessment and plan as outlined above was discussed with the patient and/or family members who expressed understanding and agreement. All questions were answered. give iron infusion Qualifiers: Iron deficiency anemia type: inadequate dietary iron intake Qualified Code(s): D50.8 - Other iron deficiency anemias (3) PAC (premature atrial contraction) Current Visit: Yes Status: Acute The assessment and plan as outlined above was discussed with the patient and/or family members who expressed understanding and agreement. All questions were answered. check mg level. increase beta josh - Subjective Interval history: a little WANG and flutter in chest Vital Signs, Last 4 Hours Temp Pulse Resp BP Pulse Ox 10/13/18 08:44 85 10/13/18 07:33 97.7 F 101 18 143/78 93 Oxgyen Flow Rate Oxygen Flow Rate (LPM) 0 Clinical Data, last 8 Hours Output, Urine Amount 300 Weight 10/11/18 10/12/18 10/13/18 23:59 23:59 23:59 Weight 77.1 kg 77.6 kg 77.9 kg - Physical Examination General: Conversant, No Apparent Distress HEENT: Atraumatic, Normocephaly Cardiac: Reg Rate and Rhythm, Normal S1 and S2 Incision: No signs of infection Lungs: Normal Breath Sounds Neuro: Alert and responsive, No focal deficits noted, Cranial nerves intact, Motor nerves intact Abdomen: Soft, Non-tender - Labs 10/13/18 01:24 10/13/18 01:24 Lab Results, Last 24 hours 10/13/18 10/13/18 01:24 01:24 WBC 11.5 H Hgb 8.4 L Hct 26.3 L Plt Count 202 Sodium 140 Potassium 4.2 Chloride 107 Carbon Dioxide 25 BUN 18 Creatinine 0.74 Glucose 98 Calcium 8.7 - VTE Documentation of Mechanical Device: Graduated compression elastic hosiery Consult Discharge Plan - Plan Referrals: Zandra Klein, HIGH REACH OPERATOR [Primary Care Provider] -
[2018-10-13 09:53] LABS: Magnesium 2.3 mg/dL (1.6-2.6)
--- NOTE | 2018-10-13 10:48 | Internal Med Progress Note ---
<Jimena Jones - Last Filed: 10/13/18 13:16> Hospitalist Progress Note - Encounter Date of Encounter: 10/13/18 - Exam Vitals: Temp Pulse Resp BP Pulse Ox 98.5 F 70 18 109/81 100 10/13/18 11:43 10/13/18 11:43 10/13/18 11:43 10/13/18 11:43 10/13/18 11:43 - Assessment and Plan (1) Chest pain Current Visit: Yes Status: Acute (2) HTN (hypertension) Current Visit: Yes Status: Suspected (3) HLD (hyperlipidemia) Current Visit: Yes Status: Chronic (4) Hx of ovarian cancer Current Visit: Yes Status: Resolved - Time Spent with Patient Total time spent is greater than 50% in coordination of care (as documented) at patient's floor/unit and/or counseling patient: Internal Medicine: Result - Labs CBC & Chem 7: 10/13/18 01:24 10/13/18 01:24 Labs: Short CBC 10/13/18 Range/Units 01:24 WBC 11.5 H (4.3-11.1) K/mcL Hgb 8.4 L (11.5-15.4) g/dL Hct 26.3 L (35.3-44.9) % Plt Count 202 (140-400) K/mcL Neutrophils # 7.6 (1.6-8.9) K/mcL BMP 10/13/18 01:24 Sodium 140 Potassium 4.2 Chloride 107 Carbon Dioxide 25 BUN 18 Creatinine 0.74 Glucose 98 Calcium 8.7 - ABG Interpretation ABG results: ABG ABG pH 7.38 pH Units (7.32-7.45) 10/10/18 04:21 ABG pCO2 37 mmHg (35-45) 10/10/18 04:21 ABG pO2 60 mmHg (85-104) L 10/10/18 04:21 ABG O2 Saturation 91 % (95-98) L 10/10/18 04:21 PT/INR, D-dimer PT 15.4 Seconds (9.4-12.1) H 10/09/18 12:50 Consult Discharge Plan - Plan Referrals: Zandra Klein, CLINICAL APPLICATION MANAGER [Primary Care Provider] - - Attending Attestation I examined this patient and my medical decision-making was reviewed with the Resident Physician Dr Velasquez. I agree with the documented findings, disposition a nd treatment plan as described except to the extent set forth below. Ms. Reyes was admitted with chest pain, found to have severe multi vessel disease and is s/p CABG. She is being followed by CT surgery primarily post op. awake, daughters at bedside. she denies cp, pressure, palpitations or sob. she is sitting on room air and comfortable. family is requesting meds be changed to oral for prn nausea and H2 josh. They would like nebs stopped as pt doesn't feel she needs them and they make her nauseated. Pt declined anything to initiate bowel movement, but daughter wants prn ordered and is encouraging her to use it, as has had no bm post op. Discussed blood count. She denies sob, lightheadedness or dizziness. aware number is improving. gen- awake, alert, appears stated age eyes- pupils equal round, no conjunctival pallor cv- reg rate and rhythm, no murmur appreciated, no le edema, midline wound dressing c/d/i lungs- ctabl, no crackles or wheezing, normal resp effort on room air neuro - alert and oriented CAD s/p CABG 10/09 -management as per CT surg -as d/w Dr Cameron she will likely dc tomorrow Post Operative acute blood loss anemia- hgb and VS stable, iron as per CT surg, outpt repeat labs recommended within first week of discharge HTN, stable- med adjustments as per her primary team further diagnoses and plan as noted by resident I have discussed with Dr Cameron and no further hospitalist needs, given CT surgery is her primary post CABG, Hospitalist team will sign off <Tara Velasquez - Last Filed: 10/13/18 14:07> Hospitalist Progress Note - Encounter Date of Encounter: 10/13/18 Time of Encounter: 10:47 - Subjective Interval History: Patient seen and examined bedside she is sitting up in no acute distress. Her daughters are at the bedside. She reports that she slept better last night than she did the previous nights. She has no complaints. She denies fever, chills, shortness of breath, chest pain. She reports chest pain has improved. - Exam Vitals: Temp Pulse Resp BP Pulse Ox 97.7 F 85 18 143/78 93 10/13/18 07:33 10/13/18 08:44 10/13/18 07:33 10/13/18 07:33 10/13/18 07:33 Exam: Gen.: Vitals noted. No acute distress. AAOx3 HEENT:oropharynx clear, Normocephalic, atraumatic Cardiac: RRR, no murmur, +S1/S2 Pulmonary: CTA bilaterally, no wheezes, rales or rhonchi, equal chest expansion Abdomen: soft, nontender, Bowel sounds noted, no guarding MSK: no joint swelling noted Extremities: no BLE edema, nontender calf, no cyanosis or clubbing Neuro: A&Ox3, moves all extremities, no focal deficits Psych: Appropriate mood and behavior - Assessment and Plan (1) Chest pain Current Visit: Yes Status: Acute Assessment and Plan: Patient initially presented to ED complaining of left-sided chest pain that radiated to her neck. She had associated symptoms of diaphoresis, dyspnea, fatigue. -She is s/p CABG on 10/09/2018. -CXR should left apical 7 mm pneumothorax that is stable -She reports chest pain is controlled. She denies shortness of breath. She is not an acute respiratory distress. -Cardiothoracic surgery is following. Likely discharge tomorrow. Hospitalist is signing off. (2) HTN (hypertension) Current Visit: Yes Status: Suspected Assessment and Plan: Patient is not have a history of hypertension however she has been hypertensive on patient. -Patient was started on metoprolol 50 b.i.d. (3) HLD (hyperlipidemia) Current Visit: Yes Status: Chronic Assessment and Plan: History of hyperlipidemia taking atorvastatin. Continue home medication (4) Hx of ovarian cancer Current Visit: Yes Status: Resolved Assessment and Plan: Patient has a history of ovarian cancer however she had surgery to remove. (5) Anemia Current Visit: Yes Status: Acute Assessment and Plan: Anemia that is likely is secondary to postop blood loss. -Hemoglobin 8.4, stable -no obvious active bleeding -on ferrous sulfate supplementation -continue to monitor hemoglobin and for bleeding - Time Spent with Patient Total time spent is greater than 50% in coordination of care (as documented) at patient's floor/unit and/or counseling patient: Internal Medicine: Result - Labs CBC & Chem 7: 10/13/18 01:24 10/13/18 01:24 Labs: Short CBC 10/13/18 Range/Units 01:24 WBC 11.5 H (4.3-11.1) K/mcL Hgb 8.4 L (11.5-15.4) g/dL Hct 26.3 L (35.3-44.9) % Plt Count 202 (140-400) K/mcL Neutrophils # 7.6 (1.6-8.9) K/mcL BMP 10/13/18 01:24 Sodium 140 Potassium 4.2 Chloride 107 Carbon Dioxide 25 BUN 18 Creatinine 0.74 Glucose 98 Calcium 8.7 - ABG Interpretation ABG results: ABG ABG pH 7.38 pH Units (7.32-7.45) 10/10/18 04:21 ABG pCO2 37 mmHg (35-45) 10/10/18 04:21 ABG pO2 60 mmHg (85-104) L 10/10/18 04:21 ABG O2 Saturation 91 % (95-98) L 10/10/18 04:21 PT/INR, D-dimer PT 15.4 Seconds (9.4-12.1) H 10/09/18 12:50 - VTE Documentation of Mechanical Device: Graduated compression elastic hosiery __ <Jimena Jones M - Last Filed: 10/13/18 13:16> (1) Chest pain Qualifiers: Chest pain type: chest pain due to myocardial ischemia Ischemic chest pain type: unstable angina pectoris Qualified Code(s): I20.0 - Unstable angina (2) HTN (hypertension) Qualifiers: Hypertension type: essential hypertension Qualified Code(s): I10 - Essential (primary) hypertension (3) HLD (hyperlipidemia) Qualifiers: Hyperlipidemia type: mixed hyperlipidemia Qualified Code(s): E78.2 - Mixed hyperlipidemia <Tara Velasquez - Last Filed: 10/13/18 14:07> (1) Chest pain Qualifiers: Chest pain type: chest pain due to myocardial ischemia Ischemic chest pain type: unstable angina pectoris Qualified Code(s): I20.0 - Unstable angina (2) HTN (hypertension) Qualifiers: Hypertension type: essential hypertension Qualified Code(s): I10 - Essential (primary) hypertension (3) HLD (hyperlipidemia) Qualifiers: Hyperlipidemia type: mixed hyperlipidemia Qualified Code(s): E78.2 - Mixed hyperlipidemia
[2018-10-13] MEDS: Famotidine 20 MG TABLET PO SCH (21:24)
[2018-10-14] MEDS: *HR* Heparin 5,000 UNIT/ML VIAL SQ SCH ×2 (04:58→17:17)
[2018-10-14] MEDS: Chlorhexidine Rinse 15 ML MOUTHWASH MM SCH ×2 (07:51→20:35)
[2018-10-14] MEDS: Aspirin 81 MG TAB.CHEW PO SCH (07:51)
[2018-10-14] MEDS: Famotidine 20 MG TABLET PO SCH ×2 (07:52→20:35)
--- NOTE | 2018-10-14 08:13 | Cardiothoracic Progress Note ---
Date of Encounter: 10/14/18 Time of Encounter: 08:11 - Assessment and plan (1) Chest pain Current Visit: Yes Status: Acute The patient is continuing to improve. We will plan to discharge her to home tomorrow. Qualifiers: Chest pain type: chest pain due to myocardial ischemia Ischemic chest pain type: unstable angina pectoris Qualified Code(s): I20.0 - Unstable angina - Subjective Interval history: The patient has no complaints. She is ambulating without difficulty. Vital Signs, Last 4 Hours Temp Pulse Resp BP Pulse Ox 10/14/18 07:52 89 10/14/18 07:07 98.7 F 86 18 149/74 93 10/14/18 04:13 98.2 F 79 18 112/68 93 Oxgyen Flow Rate Oxygen Flow Rate (LPM) 0 Clinical Data, last 8 Hours Output, Urine Amount 200 Output, Urine Amount 200 Weight 10/12/18 10/13/18 10/14/18 23:59 23:59 23:59 Weight 77.6 kg 78.9 kg Lungs are clear to percussion and auscultation. Heart is in a normal sinus rhythm. All incisions are healing well without signs of infection and the sternum is stable. - Labs 10/13/18 01:24 10/13/18 01:24 Lab Results, Last 24 hours 10/13/18 01:24 Magnesium 2.3 - VTE Documentation of Mechanical Device: Graduated compression elastic hosiery Consult Discharge Plan - Plan Referrals: Zandra Klein, INTERPRETER FOR THE DEAF [Primary Care Provider] -
[2018-10-14] MEDS: Ondansetron 4 MG/2 ML VIAL IVP PRN (08:43)
--- NOTE | 2018-10-14 14:38 | Physician Discharge Referral ---
Home Health/Hosp Referral Info Transfer to: Home Health Provider in Charge Post Discharge: PCP - Diagnosis (1) Chest pain Priority: Primary Status: Acute - Respiratory Orders Smoking Cessation: Smoking cessation has been advised. For more information, call the [place] Tobacco Quit Line at 1-351-JVPF-NOW. - Diet/Nutrition Diet/Nutrition Orders: Cardiac - Activity Activity Orders: Up ad trino, Ambulate, Chair - Services Needed Following services are medically necessary services: Nursing, Home Health Aide, Physical Therapy, Occupational Therapy - Transfer Medications Home Medications: Atorvastatin Calcium [Lipitor] 20 mg PO HS 03/14/17 [History] Cholecalciferol (D-3) [Vitamin D] 2,000 unit PO DAILY 10/05/18 [History] Multivitamin [Daily Multiple Vitamin] 1 tab PO DAILY 10/06/18 [History] Omeprazole [PriLOSEC] 40 mg PO DAILY 10/06/18 [History] Turmeric 400 mg PO DAILY 10/06/18 [History] Allergies/Adverse Reactions: Allergy/AdvReac Type Severity Reaction Status Date / Time No Known Allergies Allergy Verified 10/06/18 12:23 Certification: Further, I certify that my clinical findings support that this patient is homebound (i.e. absences from home require considerable and taxing effort and are for medical reasons or yazdanism services or infrequently or short duration when for other reasons) because: Homebound Reason: Post-surgery restriction and or conditions limit ability to leave home Attestation: My signature below is to certify that this patient is under my care and that I, or nurse practitioner, or a physician's membership assistant working with me, has a [id number] encounter with this patient.
[2018-10-15 01:47] LABS: Basophils % 0.3 %; Eosinophils # 0.2 K/mcL (0.0-0.6); Eosinophils % 1.5 %; Hemoglobin 8.4 g/dL (11.5-15.4); Immature Granulocytes % 2.9 % (0-4); Lymphocytes % 34.4 %; Mean Corpuscular HGB Conc 32.3 g/dL (31.6-35.5); Mean Corpuscular Hemoglobin 29.8 pg (28.0-33.3); Mean Corpuscular Volume 92.2 fL (83.0-100.0); Mean Platelet Volume 9.3 fL (9.4-12.4); Monocytes % 8.2 %; Neutrophils # 6.1 K/mcL (1.6-8.9); Nucleated Red Blood Cells 0.5 /100 WBC (0); Platelet Count 286 K/mcL (140-400); Red Blood Count 2.82 M/mcL (3.82-4.97); Red Cell Distribution Width 13.2 % (11.5-14.5); Segmented Neutrophils % 52.7 %; White Blood Count 11.6 K/mcL (4.3-11.1)
[2018-10-15] MEDS: *HR* Heparin 5,000 UNIT/ML VIAL SQ SCH (06:09)
[2018-10-15 07:22] VITALS: BP 134/75
[2018-10-15] MEDS: Famotidine 20 MG TABLET PO SCH (07:49)
[2018-10-15] MEDS: Chlorhexidine Rinse 15 ML MOUTHWASH MM SCH (07:49)
[2018-10-15] MEDS: Aspirin 81 MG TAB.CHEW PO SCH (07:49)
--- NOTE | 2018-10-15 08:38 | Discharge Summary ---
Orders not resulted at time of discharge: Pending orders 10/08/18 08:46 Red Blood Cells [BBK] Routine Type and Screen [BBK] Routine Date of Encounter: 10/15/18 Time of Encounter: 08:32 - Discharge Diagnosis (1) Chest pain Priority: Primary Status: Acute Qualifiers: Chest pain type: chest pain due to myocardial ischemia Ischemic chest pain type: unstable angina pectoris Qualified Code(s): I20.0 - Unstable angina - Hospital Course Hospital course: Ms. Reyes is a 68 year old female The patient is a 68-year-old female who presented with chest pain, shortness of breath and a troponin of 0.04. Cardiac catheterization revealed triple-vessel disease and she was referred for surgery. On 10/09/2018, I took her to the operating room for coronary artery bypass grafting 3, utilizing the left internal mammary artery. On October 11, the pacing wires and chest tubes were removed. Chest x-ray revealed a small, 7 mm left apical pneumothorax. This was stable on a chest x-ray done on October 12. The patient did have the usual, expected acute postoperative blood loss anemia as well as chronic, iron deficiency anemia. She did receive 1 dose of intravenous iron. The patient otherwise did well and was discharged on October 15. At that time, she was afebrile. Lungs were clear to percussion and auscultation. Heart was in a normal sinus rhythm. All incisions were healing well without signs of infection and the sternum was stable. Discharge medications are on the med rec and include narcotics for pain. I did check the [facility] Rx reporting system. She was postoperative and was given a one-week supply. Appropriate precautions were given. She was to return to her previous and regular diet. She was to avoid heavy lifting for a total of 3 months after surgery, but to walk as much as possible. She was to avoid driving for 1 month. She was to follow up and see me in the office in 4 weeks as directed. She was to follow-up with her plasterer maintenance and primary care doctor as directed. She was to call sooner for any difficulties. - Time Spent with Patient Total time spent providing and/or coordinating discharge services: - Discharge Medications Prescriptions: New Aspirin 81 mg PO DAILY #60 tab.chew Metoprolol [Lopressor] 50 mg PO BID #60 tablet OxyCODONE/APAP 5/325 [Percocet 5/325 MG] 1 each PO Q4HR PRN 7 Days #10 tablet PRN Reason: Severe Pain Continued Cholecalciferol (D-3) [Vitamin D] 2,000 unit PO DAILY Turmeric 400 mg PO DAILY Multivitamin [Daily Multiple Vitamin] 1 tab PO DAILY Omeprazole [PriLOSEC] 40 mg PO DAILY Atorvastatin Calcium [Lipitor] 20 mg PO HS #30 tablet Home Medications: Cholecalciferol (D-3) [Vitamin D] 2,000 unit PO DAILY 10/05/18 [History] Multivitamin [Daily Multiple Vitamin] 1 tab PO DAILY 10/06/18 [History] Omeprazole [PriLOSEC] 40 mg PO DAILY 10/06/18 [History] Turmeric 400 mg PO DAILY 10/06/18 [History] Aspirin 81 mg PO DAILY #60 tab.chew 10/15/18 [Rx] Atorvastatin Calcium [Lipitor] 20 mg PO HS #30 tablet 10/15/18 [Rx] Metoprolol [Lopressor] 50 mg PO BID #60 tablet 10/15/18 [Rx] OxyCODONE/APAP 5/325 [Percocet 5/325 MG] 1 each PO Q4HR PRN 7 Days #10 tablet 10/15/18 [Rx] Allergies/Adverse Reactions: Allergy/AdvReac Type Severity Reaction Status Date / Time No Known Allergies Allergy Verified 10/06/18 12:23 Date of admission: 10/05/18 18:51 Primary care physician: Zandra Klein CNP Consults: 10/05/18 08:31 Consult to Cardiology [CONS] Routine Comment: Consulting Provider: Cardiology Laurence Reason for Consult: chest pain - unstable angina Call Completed: Yes 10/09/18 12:38 Consult to Cardiac Rehabilitation-Phase1 [CONS] Routine Comment: Reason for Consult: Post open heart Call Completed: Yes Consult to Mail Service Coordinator [CONS] Routine Reason for SW Consult: open heart 10/11/18 10:11 Consult for Pharmacy Education [CONS] Routine Reason for Consult: Post-Op Heart Call Completed: Yes Consult to Physical Therapy [CONS] Routine Comment: Evaluate, develop and implement POC Reason for Consult: Post open heart Does patient have active BEDREST order?: No Is patient medically & hemodynamically stable?: Yes Procedure(s) Performed: 10/09/2018. Coronary artery bypass grafting 3, utilizing the left internal mammary artery. Discharging clinician: Carlos Ruiz Anticipated date of discharge: 10/15/18 Physical Examination Vital Signs, Last 4 Hours Temp Pulse Resp BP Pulse Ox 10/15/18 07:21 98.0 F 94 18 134/75 94 10/15/18 04:35 84 - Patient Status Disposition: Home, Self-Care Condition: Fair Functional capacity at discharge: independent ambulation Overall status at discharge: patient is progressing back to baseline - Discharge Instructions Follow Up With: Zandra Klein, SMALL BRAKE FORM OPERATOR [Primary Care Provider] - [facility] Aspirin Cont/Prescribed at DC: Yes Beta Steff Cont/Prescribed at DC: Yes Statin Cont/Prescribed at DC: Yes CONNIE/ARB Cont/Prescribed at DC: Not indicated - VTE Documentation of Mechanical Device: Graduated compression elastic hosiery
== END 2018-10-15 10:55 | disposition home or self-care (01) | DRG 234 ==
LOC: 3BNU 14:46 → EMEROOARM 14:46 → SUATTDRO 18:29 → 3BNU 19:42 → SUATTDRO 10-05 18:51 → ICNU 10-08 20:08 → 2NNU 10-12 09:24
PROVIDERS: ADMIT Internal Medicine Nephrology; ATTEND Thoracic Surgery (Cardiothoracic Vascular Surgery)